=== PATIENT | male | born 1970 | race Caucasian/White ===

== ENCOUNTER → 2016-10-15 | Outpatient (CLI) | payer OTHER ==
[~2016-10-15] MED LIST: CEPH500C PO; HYDR-5688 PO; IBUP1TAB51 PO; INSDGI SC; INSUINJ14 SC; LSN5 PO; PRAV20TA PO; ROSU20TA PO; SULF800T23 PO
[2016-10-15 15:02] LABS: ESTIMATED AVERAGE GLUCOSE 217 mg/dl; HA1C FLAG Normal (Normal)
[2016-10-15 15:21] LABS: ALT/SGPT 33 U/L (12-78); AST/SGOT 25 U/L (15-37); BLOOD UREA NITROGEN 15 mg/dl (7-18); BUN/CREATININE RATIO 14.9 (10-20); CALCIUM 8.8 mg/dl (8.5-10.1); CARBON DIOXIDE 25 mmol/L (21-32); CHLORIDE 104 mmol/L (98-107); GLUCOSE 182 mg/dl (70-99); POTASSIUM 4.1 mmol/L (3.5-5.1); SODIUM 138 mmol/L (136-145)
[2016-10-15 15:32] LABS: ALKALINE PHOSPHATASE 84 U/L (45-117); CHOLESTEROL 281 mg/dl (0-200); CHOLESTEROL/HDL RATIO 6.4; HDL CHOLESTEROL 44 mg/dl; LDL CHOLESTEROL CALCULATED 215 mg/dl; THYROID STIMULATING HORMONE 0.427 uIu/ml (0.300-4.500); TRIGLYCERIDES 108 mg/dl (0-150); VERY LOW DENSITY LIPOPROT CALC 22 mg/dl
[2016-10-15 15:48] LABS: RATIO 286.8 mcg/mg (0-30.0)
== END | disposition home or self-care (01) ==
LOC: C.LAB 12:59
PROVIDERS: ATTEND Nurse Practitioner Family
DX: E78.5 Hyperlipidemia, unspecified (principal); R80.9 Proteinuria, unspecified; E10.29 Type 1 diabetes mellitus with other diabetic kidney complication; E10.65 Type 1 diabetes mellitus with hyperglycemia

== ENCOUNTER 2016-10-20 12:23 | Emergency (ER) | payer OTHER ==
[~2016-10-20] VITALS: Ht 175.3 cm; Wt 82.1 kg
[~2016-10-20 12:23] MED LIST changes: -CEPH500C PO; -ROSU20TA PO; -SULF800T23 PO
[2016-10-20 12:34] VITALS: TEMP 36.9; Ht 175.3 cm; Wt 82.1 kg
[2016-10-20] MEDS ORDERED: ROSU20TA PO (12:52)
--- NOTE | 2016-10-20 13:51 | DIAGNOSTIC IMAGING REPORT ---
LEFT TIBIA/FIBULA 2 VIEWS ROUTINE CLINICAL HISTORY: Left lower leg pain/swelling COMPARISON: None. DISCUSSION: No fractures or dislocations are visualized. No destructive lesions are identified. There are calcifications in the region of the infrapatellar fat pad. Vascular calcifications are visualized in the region of the distal anterior tibial artery. IMPRESSION: 1. No fractures identified 2. No erosive or destructive changes are visualized Electronically signed by: Kip Luu M.D. 10/20/2016 1:50 PM Dictated Date/Time: 10/20/2016 1:48 PM
--- NOTE | 2016-10-20 14:36 | DIAGNOSTIC IMAGING REPORT ---
ULTRASOUND LEFT LOWER EXTREMITY VENOUS CLINICAL HISTORY: Left leg pain and swelling. COMPARISON STUDY: No priors. TECHNIQUE: Real-time, grayscale, and color Doppler sonography of the deep veins of the left lower extremity was performed from the inguinal crease to the calf. Compression and augmentation were utilized. FINDINGS: There is no sonographic evidence of deep venous thrombosis identified in the left lower extremity. The common femoral, superficial femoral, and popliteal veins are patent and normally compressible. The greater saphenous vein and the profunda femoris vein at the junction with the common femoral vein are clear. The visualized calf veins are patent. IMPRESSION: There is no sonographic evidence of deep venous thrombosis identified in the left lower extremity. Electronically signed by: Darrick Duckworth M.D. 10/20/2016 2:34 PM Dictated Date/Time: 10/20/2016 2:34 PM
[2016-10-20] MEDS ORDERED: CEPH500C PO (15:36)
[2016-10-20] MEDS ORDERED: SULF800T23 PO (15:36)
[2016-10-20 15:38] VITALS: BP 135/85; PULSE 71; O2SAT 100
--- NOTE | 2016-10-21 15:11 | EMERGENCY ROOM VISIT NOTE ---
History First contact with patient: 12:54 Chief Complaint: WOUND INFECTION Stated Complaint: LUMP ON LEFT MAIN Nursing Triage Summary: Triage note: pt reports lump to left amin x 1 week. "it gets sore and swollen when i am up and walking around." pt reports concern for blood clots. pt denies any hx of blood clots. pt denies any injury. History of Present Illness The patient is a 46 year old male who presents to the Emergency Room with complaints of pain and swelling over the front of his left lower leg. The patient states that walking worsens his symptoms. He does not recall a distinct injury or trauma. He is a diabetic and has some decreased sensation at baseline. The patient states that the swelling just began over the past 2 days, and he became concerned for a blood clot. The patient does not have chest pain or shortness of breath. No fever or chills. He has not taken anything [id number] for his symptoms which she rates a 5/10. Review of Systems More than 10 systems were reviewed and otherwise negative with the exception of history of present illness. Past Medical/Surgical History Diabetes Family History No pertinent family history Social History Smoking Status: Never Smoker Housing Status: lives with family Current/Historical Medications Scheduled Cephalexin Monohydrate (Keflex), 500 MG PO TID Insulin Aspart Penfill (Novolog Penfill), 1 DOSE SC SLIDING SCALE Insulin Glargine (Lantus), 14 UNITS SC HS Lisinopril (Lisinopril), 5 MG PO HS Rosuvastatin Calcium (Crestor), 20 MG PO DAILY Sulfamethoxazole-Trimethoprim (Bactrim Ds 800MG/160MG), 1 TAB PO BID Allergies Coded Allergies: No Known Allergies (Unverified , 10/20/16) Physical Exam Vital Signs Date Time Temp Pulse Resp B/P Pulse Ox O2 Delivery O2 Flow Rate FiO2 10/20/16 15:38 71 16 135/85 100 10/20/16 14:36 73 18 127/81 99 Room Air 10/20/16 12:34 36.9 94 18 138/91 98 Room Air Pain Rating (0-10): 2.0 Physical Exam VITALS: Vitals are noted on the nurse's note and reviewed by myself. Vital signs stable. GENERAL: Well-developed, well-nourished, white male, who is in no acute distress and resting comfortably. Patient is cooperative with the examination. HEAD: Normocephalic atraumatic. HEART: Regular rate and rhythm without murmurs gallops or rubs. LUNGS: Clear to auscultation bilaterally without wheezes, rales or rhonchi. No retractions or accessory muscle use. MUSCULOSKELETAL: There is some patchy erythema over the anterior and medial left lower extremity. There is no obvious palpable cord. Negative Homans sign. Neurovascular status is essentially intact to the distal extremity. No distinct abscess noted. NEURO: Patient was alert and oriented to person place and time. Medical Decision & Procedures ER Provider Diagnostic Interpretation: ULTRASOUND LEFT LOWER EXTREMITY VENOUS CLINICAL HISTORY: Left leg pain and swelling. COMPARISON STUDY: No priors. TECHNIQUE: Real-time, grayscale, and color Doppler sonography of the deep veins of the left lower extremity was performed from the inguinal crease to the calf. Compression and augmentation were utilized. FINDINGS: There is no sonographic evidence of deep venous thrombosis identified in the left lower extremity. The common femoral, superficial femoral, and popliteal veins are patent and normally compressible. The greater saphenous vein and the profunda femoris vein at the junction with the common femoral vein are clear. The visualized calf veins are patent. IMPRESSION: There is no sonographic evidence of deep venous thrombosis identified in the left lower extremity. LEFT TIBIA/FIBULA 2 VIEWS ROUTINE CLINICAL HISTORY: Left lower leg pain/swelling COMPARISON: None. DISCUSSION: No fractures or dislocations are visualized. No destructive lesions are identified. There are calcifications in the region of the infrapatellar fat pad. Vascular calcifications are visualized in the region of the distal anterior tibial artery. IMPRESSION: 1. No fractures identified 2. No erosive or destructive changes are visualized ED Course Physical exam and history were performed. Nursing notes and EMR were reviewed. Patient appears to have pain and swelling over the left lower leg. He does not have injury or trauma that he recalls. X-ray and ultrasound were performed. The x-ray does not show evidence of acute fracture. The ultrasound is without signs of a DVT. I discussed the findings with the patient, who overall appears stable for discharge home. Because he is a diabetic and does have some erythema here, I do have concern for an early cellulitis. I will start the patient on Bactrim and Keflex. Recommended that he have a repeat check of his symptoms in the next 2-3 days either in the ER or with his PCP. He is certainly invited back to the ER if his symptoms worsen. The patient was pleased with this plan of voiced understanding. He rated his discomfort a 2/10 at the time of departure. The chart was completed utilizing [employer] Voice Recognition Software. Grammatical errors, random word insertions, pronoun errors, and incomplete sentences are an occasional consequence of this system due to software limitations, ambient noise, and hardware issues. Any formal questions or concerns about the content, text, or information contained within the body of this dictation should be directly addressed to the provider for clarification. . Medical Decision Differential diagnosis: Etiologies such as cellulitis, abscess, MRSA infection, DVT, necrotizing fasciitis, dermatitis, drug eruption, as well as others were entertained.. Impression Primary Impression: Cellulitis of left leg Departure Information Dispostion Home / Self-Care Condition GOOD Prescriptions Cephalexin Monohydrate (Keflex) 500 Mg Cap 500 MG PO TID for 10 Days, #30 CAP Prov: Juno Aguayo PA-C 10/20/16 Sulfamethoxazole-Trimethoprim (Bactrim Ds 800MG/160MG) 1 Tab Tab 1 TAB PO BID for 10 Days, #20 TAB Prov: Juno Aguayo PA-C 10/20/16 Forms HOME CARE DOCUMENTATION FORM, IMPORTANT VISIT INFORMATION Patient Instructions A Signature Page, [facility] Additional Instructions You were seen and evaluated today on an emergency basis only. This is not a substitute for, or an effort to provide, complete comprehensive medical care. It is not possible to recognize and treat all injuries or illnesses in a single emergency department visit. For this reason it is recommended that you followup with your primary care physician or back in the emergency room in 48-72 hours for recheck. Trimethoprim-Sulfamethoxazole(Bactrim DS): Take one pill twice daily for 10 days for your skin infection. All antibiotics can cause diarrhea. If this occurs and you feel worse or it does not resolve in 1-2 days follow up with your doctor or return to the Emergency Department as this could be signs of serious underlying problems. Any medication can cause an allergic reaction, stop the pills immediately and return to the ER for rash, hives, breathing difficulties, or swelling. Cephalexin(Keflex) 500mg: Take one pill 3 times daily for 10 days for your skin infection. All antibiotics can cause diarrhea. If this occurs and you feel worse or it does not resolve in 1-2 days follow up with your doctor or return to the Emergency Department as this could be signs of serious underlying problems. Any medication can cause an allergic reaction, stop the pills immediately and return to the ER for rash, hives, breathing difficulties, or swelling. You are welcome to return to the emergency department anytime with new, worsening, or concerning symptoms.
== END 2016-10-20 15:50 | disposition home or self-care (01) ==
LOC: C.EDB 12:24 → C.EDD 15:50
DX: L03.116 Cellulitis of left lower limb (principal); E11.9 Type 2 diabetes mellitus without complications; Z79.4 Long term (current) use of insulin

== ENCOUNTER → 2017-01-18 | Outpatient (CLI) | payer BC, OTHER ==
[~2017-01-18] MED LIST changes: -HYDR-5688 PO; -IBUP1TAB51 PO; -PRAV20TA PO; +ROSU20TA PO
[2017-01-18 12:45] LABS: CHOLESTEROL/HDL RATIO 5.8
[2017-01-18 13:13] LABS: RATIO 192.2 mcg/mg (0-30.0)
[2017-01-18 13:57] LABS: ESTIMATED AVERAGE GLUCOSE 197 mg/dl; HA1C FLAG Normal (Normal)
== END | disposition home or self-care (01) ==
LOC: C.LAB 11:10
PROVIDERS: ATTEND Nurse Practitioner Family
DX: E10.29 Type 1 diabetes mellitus with other diabetic kidney complication (principal)

== ENCOUNTER → 2017-04-25 | Outpatient (CLI) | payer BC, OTHER ==
[2017-04-25 13:24] LABS: ESTIMATED AVERAGE GLUCOSE 192 mg/dl; HA1C FLAG Normal (Normal)
== END | disposition home or self-care (01) ==
LOC: C.LABPBG 10:51
PROVIDERS: ATTEND Nurse Practitioner Family
DX: E10.29 Type 1 diabetes mellitus with other diabetic kidney complication (principal)

== ENCOUNTER → 2017-09-07 | Outpatient (CLI) | payer BC, OTHER ==
[2017-09-07 13:44] LABS: ESTIMATED AVERAGE GLUCOSE 192 mg/dl; HA1C FLAG Normal (Normal)
== END | disposition home or self-care (01) ==
LOC: C.LABPBG 11:18
PROVIDERS: ATTEND Nurse Practitioner Family
DX: E10.29 Type 1 diabetes mellitus with other diabetic kidney complication (principal)

== ENCOUNTER → 2017-12-14 | Outpatient (CLI) | payer BC, OTHER ==
[2017-12-14 13:03] LABS: HEMOGLOBIN A1C 9.2 % (4.5-5.6)
[2017-12-14 14:19] LABS: BLOOD UREA NITROGEN 19 mg/dl (7-18); CALCIUM 9.5 mg/dl (8.5-10.1); CARBON DIOXIDE 28 mmol/L (21-32); CHOLESTEROL 143 mg/dl (0-200); CREATININE 0.91 mg/dl (0.60-1.40); GLUCOSE 46 mg/dl (70-99); LDL CHOLESTEROL CALCULATED 89 mg/dl; POTASSIUM 3.6 mmol/L (3.5-5.1); SODIUM 140 mmol/L (136-145)
== END | disposition home or self-care (01) ==
LOC: C.LABPBG 10:01
PROVIDERS: ATTEND Nurse Practitioner Family
DX: E10.29 Type 1 diabetes mellitus with other diabetic kidney complication (principal)

== ENCOUNTER 2023-05-18 17:10 | Inpatient (IN) ==
--- NOTE | 2023-05-18 17:16 | ED Triage Note ---
Date of Service May 18, 2023 History of Present Illness This patient was briefly evaluated while in triage. An abbreviated physical exam was performed. This patient is a 52-year-old Male who presents to the ED for evaluation of memory loss, aphasia, facial droop. Symptoms started around 1130a and lasted 2 hours. They have since resolved. Denies any symptoms at this time. AAOx3. Physical Exam Constitutional: alert and oriented x3. no acute distress. HEENT: normocephalic, atraumatic. normal conjunctiva.PERRLA. EOM's grossly intact. Respiratory: lungs are clear to auscultation without wheezes, rhonchi, or rales bilaterally. equal chest rise. normal respiratory effort, no accessory muscle use. Cardiovascular: normal heart sounds without murmur. regular rate and rhythm. MSK: moves all 4 extremities spontaneously Neuro: no focal deficits Psych:appropriate mood and affect. Initial orders for labs and / or imaging were placed and patient was placed in the waiting area until a bed is available. Please see further documentation for the full ED course.
[2023-05-18 18:08] LABS: Basophils # (auto) 0.03 K/uL (0-0.2); Basophils % (auto) 0.4 %; Eosinophils % (auto) 3.6 %; Hematocrit (blood only) 40.9 % (42.0-52.0); Hemoglobin 14.5 g/dl (14.0-18.0); Immature Granulocytes # (auto) 0.03 K/uL (0.01-0.20); Immature Granulocytes % (auto) 0.4 %; Lymphocytes # (auto) 2.55 K/uL (1.2-3.4); Lymphocytes % (auto) 30.6 %; Mean Corpuscular Hemoglobin 30.8 pg (25.0-34.0); Mean Corpuscular Hgb Conc 35.5 g/dL (32.0-36.0); Mean Corpuscular Volume 86.8 fL (80.0-100.0); Mean Platelet Volume 10.6 fL (9.4-12.4); Monocytes # (auto) 0.83 K/uL (0.11-0.59); Neutrophils # (auto) 4.59 K/uL (1.40-6.50); Platelet Count 232 K/uL (130-400); RDW Coefficient of Variation 12.2 % (11.5-14.5); RDW Standard Deviation 39.1 fL (36.4-46.3); Red Blood Count 4.71 M/uL (4.70-6.10); White Blood Count 8.33 K/ul (4.8-10.8)
[2023-05-18 18:25] LABS: Albumin Globulin Ratio 1.5 (0.9-2); Albumin Level 4.1 gm/dl (3.4-5.0); BUN Creatinine Ratio 13.3 (10-20); Bilirubin,Total 0.6 mg/dl (0.2-1.0); Calcium 9.2 mg/dl (8.6-10.3); Creatinine Clr Calc Pharmacy 99.4 ml/min; Est GFR (Non-African American) 88.9 ml/min; Globulin 2.8 gm/dl (2.5-4.0); Potassium 3.7 mmol/L (3.5-5.1); Total Protein 6.9 gm/dl (6.0-8.3)
[2023-05-18 18:31] LABS: Troponin I High Sensitivity 6.4 pg/ml (0-20)
[2023-05-18 18:43] LABS: INR 0.9 (0.9-1.1); Partial Thromboplastin Ratio 0.9
--- NOTE | 2023-05-18 18:46 | CT Scan Report ---
CT SCAN OF THE BRAIN WITHOUT IV CONTRAST CLINICAL HISTORY: Aphasia. Memory loss COMPARISON STUDY: No priors. TECHNIQUE: Unenhanced axial CT scan of the brain is performed from the vertex to the skull base. A do se lowering technique was utilized adhering to the principles of ALARA. CT DOSE: 547.75 mGy.cm FINDINGS: Brain parenchyma: There is age-related involutional change noting mild subcortical and periventricula r microangiopathic disease. There is no hemorrhage, mass effect, or evidence of acute territorial isc hemia by CT criteria. 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 Diana-white matte r differentiation is preserved. No extra-axial fluid collection is seen. Ventricles, sulci, cisterns: Prominent secondary to involutional change. Intracranial vasculature: There is atherosclerotic calcification of the cavernous carotid and vertebr al arteries. Calvarium: Unremarkable. Sinuses and mastoids: There is mild mucosal thickening within the right maxillary antrum comment a le ft frontal sinus, and the ethmoid sinuses. Moderate mucosal thickening is seen within the right front al sinus. The mastoid air cells are well pneumatized. Orbits: The bony orbits are grossly intact. IMPRESSION: There is no hemorrhage, mass effect, or evidence of acute territorial ischemia by CT anya jensen. ACT 112: Negative or not required by law. Electronically signed by: Darrick Duckworth M.D. 05/18/2023 6:44 PM
[2023-05-18] MEDS ORDERED: ACETAMINOPHEN 1,000 MG/100 ML VIAL IV STA (19:26)
[2023-05-18] MEDS ORDERED: SODIUM CHLORIDE 0.9% 1000ML 1,000 ML IV SCH (19:30)
--- NOTE | 2023-05-18 19:34 | XRay Report ---
SINGLE VIEW CHEST CLINICAL HISTORY: Atypical chest pain. FINDINGS: 2 AP, portable, upright chest radiographs are compared to study dated 01/02/2023. The cardio mediastinal silhouette is unremarkable. There is mild bibasilar atelectasis. The lungs and pleural sp aces are otherwise clear. No pneumothorax is seen. The bony thorax is grossly intact. IMPRESSION: No acute cardiopulmonary abnormality. ACT 112: Negative or not required by law. Electronically signed by: Darrick Duckworth M.D. 05/18/2023 7:33 PM
--- NOTE | 2023-05-18 20:03 | CT Scan Report ---
Exam(s): CTA HEAD With Contrast IV Amt: 115 ml optiray 350 EXAM: CT Angiography Head With Intravenous Contrast CLINICAL HISTORY: Reason for exam: stroke symptoms. TECHNIQUE: Axial computed tomographic angiography images of the head with intravenous contrast. CTDI is 40 mGy and DLP is 554.01 mGy-cm. Automated exposure control was utilized for the study. A dose lowering technique was utilized adhering to the principles of ALARA. MIP reconstructed images were created and reviewed. CONTRAST: Patient received 115 ml optiray 350 of IV contrast COMPARISON: No relevant prior studies available. FINDINGS: Right internal carotid artery: No acute findings. Intracranial segment is patent with no significant stenosis. No aneurysm. Right anterior cerebral artery: Unremarkable. No occlusion or significant stenosis. No aneurysm. Right middle cerebral artery: Unremarkable. No occlusion or significant stenosis. No aneurysm. Right posterior cerebral artery: Unremarkable. No occlusion or significant stenosis. No aneurysm. Right vertebral artery: Unremarkable as visualized. Left internal carotid artery: No acute findings. Intracranial segment is patent with no significant stenosis. No aneurysm. Left anterior cerebral artery: Unremarkable. No occlusion or significant stenosis. No aneurysm. Left middle cerebral artery: Unremarkable. No occlusion or significant stenosis. No aneurysm. Left posterior cerebral artery: Unremarkable. No occlusion or significant stenosis. No aneurysm. Left vertebral artery: Unremarkable as visualized. Basilar artery: Unremarkable. No occlusion or significant stenosis. No aneurysm. IMPRESSION: Normal head CTA. Electronically signed by: Stevie Sen MD 05/18/23 20:02 PM
--- NOTE | 2023-05-18 20:04 | CT Scan Report ---
Exam(s): CTA NECK With Contrast IV Amt: 115 ml optiray 350 EXAM: CT Angiography Neck With Intravenous Contrast CLINICAL HISTORY: Reason for exam: stroke symptoms. TECHNIQUE: Routine carotid CT angiography protocol was performed with intravenous contrast. NASCET criteria using the distal ICAs for comparison were used for evaluation of stenoses. CTDI is 40 mGy and DLP is 554.01 mGy-cm. Automated exposure control was utilized for the study. A dose lowering technique was utilized adhering to the principles of ALARA. MIP reconstructed images were created and reviewed. CONTRAST: Patient received 115 ml optiray 350 of IV contrast COMPARISON: None. FINDINGS: VASCULATURE: Right common carotid artery: Unremarkable. No occlusion or significant stenosis. No dissection. Right internal carotid artery: Unremarkable. Extracranial segment is patent with no occlusion or significant stenosis. No dissection. Right external carotid artery: Unremarkable. No occlusion. Right vertebral artery: Unremarkable. No occlusion or significant stenosis. No dissection. Left common carotid artery: Unremarkable. No occlusion or significant stenosis. No dissection. Left internal carotid artery: Unremarkable. Extracranial segment is patent with no occlusion or significant stenosis. No dissection. Left external carotid artery: Unremarkable. No occlusion. Left vertebral artery: Unremarkable. No occlusion or significant stenosis. No dissection. NECK: Bones/joints: Unremarkable. Soft tissues: Unremarkable. Lung apices: Clear. CAROTID STENOSIS REFERENCE USING NASCET CRITERIA: % ICA stenosis = (1 - narrowest ICA diameter/diameter of distal cervical ICA) x 100. Mild - <50% stenosis. Moderate - 50-69% stenosis. Severe - 70-94% stenosis. Near occlusion - 95-99% stenosis. Occluded - 100% stenosis. IMPRESSION: Negative CTA neck. Electronically signed by: Stevie Sen MD 05/18/23 20:03 PM
--- NOTE | 2023-05-18 20:49 | Emergency Department Note ---
Impression & Plan Stroke-like symptoms, Headache ED Provider Note ED Provider Note NAME: MALIKA GALLARDO AGE:52 SEX: Male : 1970 ARRIVES VIA: Private vehicle INFORMANT: Patient ED PROVIDER(s): Neeta Hoyos DO CHIEF COMPLAINT: Strokelike symptoms HPI: This is a 52-year-old male presents emerged from with significant other at bedside due to concern for possible stroke. Patient states after dropping his truck off at the mechanics today he began to have difficulty remembering things including how to use his phone or how to call his significant other. The significant other bedside shows and reads texts from throughout the afternoon that were abnormal for him. She also has a He was have a check he tried to write and could not remember how to properly write a check and states the aircraft rigging and controls mechanic had to do it for him. Patient states he had a significant headache throughout the day which is unusual for him as well. He denies any trauma or falls, denies any recent illness or fevers. Patient denies any prior similar events. He states he did have some slight tingling in his hands bilaterally but no other paresthesias. He denied any weakness. The significant other states he showed up to her place of work and had mumbled and slurred speech, appeared pale, and could not walk with a steady gait. PAST MEDICAL HISTORY:See Below PAST SURGICAL HISTORY:See Below FAMILY HISTORY:See Below SOCIAL HISTORY:See Below HOME MEDICATIONS:See Below ALLERGIES:See Below VITALS:See Below PHYSICAL EXAMINATION: GENERAL: alert, well appearing, well nourished, no distress, non-toxic EYE EXAM: normal conjunctiva, PERRL and EOM's grossly intact OROPHARYNX: no exudate, no erythema, lips, buccal mucosa, and tongue normal and mucous membranes are moist NECK: supple, no nuchal rigidity, no adenopathy, non-tender LUNGS: Clear to auscultation. Normal chest wall mechanics, no w/r/r HEART: no murmurs, S1 normal and S2 normal ABDOMEN: abdomen soft, non-tender, normo-active bowel sounds, no masses, no rebound or guarding. BACK: Back is symmetrical on inspection and there is no deformity, no midline tenderness, no CVA tenderness. SKIN: no rashes, petechiae, orbruising UPPER EXTREMITIES: upper extremities are grossly normal. FROM, nml pulses b/l. LOWER EXTREMITIES: No pitting edema. FROM, nml pulses b/l. NEURO EXAM: Normal sensorium, cranial nerves II-XII grossly intact, normal speech but occasionally mumbles thru a word, no facial droop,nogross weakness of arms, no gross weakness of legs. Gross sensation intact. No ataxia. Vital Signs: reviewed and remarkable Differential Diagnosis: TIA, CVA, ICH, complex migraine, seizure, electrolyte abnormality, JEREMIAH, anxiety, as well as others were considered MEDICAL DECISION MAKING: This is a 52-year-old male presents emergency room due to concern for memory loss, dysarthria, difficulty walking, and headache that began earlier today. No prior episodes. Patient afebrile and vital signs stable. Labs drawn and sent, IV established, EKG and chest ray performed at bedside and interpreted by me, patient monitored on telemetry. Patient sent for CT/CTA which were reassuring. Patient with multiple risk factors for TIA/CVA. All patient's symptoms were improved by the time of my evaluation here, significant other at bedside states he was still not fully recovered or returned to normal. Due to concern and risk factors, case discussed with hospitalist for additional evaluation and management. Consultation(s): 2022: Discussed with Dr. Coyne, [facility] hospitalist service. ER Treatment Provided: See below Diagnostics Interpreted By Me: -ECG: Normal sinus at 64, normal axis, normal intervals, no acute ST/T wave changes -Cardiac Monitoring: An order was placed for continuous cardiac monitoring. The monitor shows a rate of 70 with normal sinus rhythm. -Laboratory studies: As stated above and show below. -Imaging studies: X-ray Chest: A single view study of the chest was reviewed and was negative for cardiomegaly, focal infiltrate, effusion, pulmonary edema, or wide mediastinum. 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 Dyslipidemia Erectile dysfunction Flexor tendon rupture of hand Hepatic steatosis HTN (hypertension) Shoulder pain Spinal stenosis Surgical History History of esophagogastroduodenoscopy (EGD) History of tooth extraction S/P carpal tunnel release Family History Mother Dyslipidemia Hypertension Thyroid disease Grandmother (Maternal) Coronary heart disease Brother Colorectal cancer Other No family history of adverse response to anesthesia Denies family history of Ovarian cancer Prostate cancer Breast cancer Lung cancer Social History Smoking Status: Former smoker Tobacco Type: Cigarettes Age Quit Using Tobacco: 40; packs per day: 0.5; Second Hand Exposure: No; Do You Dip or Chew Tobacco: Yes; Hx Alcohol Use: Yes Alcohol type: beer Alcohol type Comment: social Alcohol Intake Frequency: Monthly or Less Hx Substance Use: No Preferred Language: Japanese Communication Ability: Effective Visual Impairment: No Limitations Hearing Ability: Normal Full Time Required: No Beliefs That Will Affect Care: None marital status: Single Current Living Situation: Significant Other current occupational status: employed 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 Feels Safe at Home: Yes Childhood Exposure to Second-Hand Smoke: Yes Diet: regular Diet Comment: regular caffeine: Yes (coffee) during the past year weight has: remained stable Dental Care, Regularly: No Physical Activity Frequency: Does not Exercise Seatbelt Use: sometimes Sunscreen Use: No Assistive Devices: None Allergies Allergies Allergy/AdvReac Type Severity Reaction Status Date / Time No Known Allergies Allergy Verified 02/14/23 11:49 Home Meds Home Medications Medication Instructions Recorded Confirmed cholecalciferol (vitamin D3) 25 25 mcg PO DAILY 01/02/23 05/18/23 mcg (1,000 unit) capsule (Vitamin D3) insulin aspart U-100 100 unit/mL 10 - 15 unit subcut TIDM 01/02/23 05/18/23 (3 mL) subcutaneous pen (Novolog FlexPen U-100 Insulin aspart) empagliflozin 10 mg tablet mg 05/19/23 (Jardiance) insulin glargine 100 unit/mL (3 40 unit subcut QAM 05/19/23 05/19/23 mL) subcutaneous pen (Basaglar KwikPen U-100 Insulin) Previous Rx's Medication Instructions Recorded Accu-Chek Fastclix Lancet Drum #400 ea 01/08/21 (lancets) pen needle, diabetic 32 gauge x #400 ea 03/01/22 5/32" (BD Ultra-Fine Alisia Pen Needle) aspirin 81 mg tablet,delayed 81 mg PO DAILY #90 tabs 08/30/22 release Accu-Chek Guide test strips (blood #400 ea 02/14/23 sugar diagnostic) escitalopram oxalate 10 mg tablet 10 mg PO QAM #90 tabs 02/25/23 blood-glucose sensor (FreeStyle #2 ea 04/04/23 Gaby 3 Sensor device) rosuvastatin 40 mg tablet 40 mg PO DAILY #90 tabs 04/25/23 lisinopril 20 mg tablet 20 mg PO HS #90 tabs 05/11/23 ezetimibe 10 mg tablet 10 mg PO DAILY #90 tabs 05/18/23 clopidogrel 75 mg tablet 75 mg PO QAM 30 days #30 tabs 05/19/23 Results & Data (ED) Vital Signs Vital Signs - 24 hr 05/18/23 17:14 05/18/23 18:55 05/18/23 18:55 Temperature 36.4 C L Temperature Source Temporal Artery Scan Pulse Rate 82 63 61 Respiratory Rate 20 18 Blood Pressure 116/70 Blood Pressure Mean 85 Pulse Oximetry 95 Oxygen Delivery Method Room Air Sepsis Recent Fever Within 48 Hours No Sepsis New/Unexplained Change in Mental Status N/A Sepsis Action Taken by Nursing No Action Required 05/18/23 19:00 05/18/23 19:00 05/18/23 19:10 Temperature Temperature Source Pulse Rate 58 L 63 Respiratory Rate 22 23 Blood Pressure 121/79 Blood Pressure Mean 93 Pulse Oximetry Oxygen Delivery Method Sepsis Recent Fever Within 48 Hours Sepsis New/Unexplained Change in Mental Status Sepsis Action Taken by Nursing 05/18/23 19:20 05/18/23 19:30 05/18/23 19:30 Temperature Temperature Source Pulse Rate 64 68 Respiratory Rate 21 23 Blood Pressure 146/95 H Blood Pressure Mean 112 Pulse Oximetry Oxygen Delivery Method Sepsis Recent Fever Within 48 Hours Sepsis New/Unexplained Change in Mental Status Sepsis Action Taken by Nursing Laboratory Data 05/18/23 17:25 05/18/23 17:25 Lab Results 05/18/23 05/18/23 05/18/23 Range/Units 17:25 17:25 17:25 WBC 8.33 (4.8-10.8) K/ul RBC 4.71 (4.70-6.10) M/uL Hgb 14.5 (14.0-18.0) g/dl Hct 40.9 L (42.0-52.0) % MCV 86.8 (80.0-100.0) fL MCH 30.8 (25.0-34.0) pg MCHC 35.5 (32.0-36.0) g/dL RDW Std Deviation 39.1 (36.4-46.3) fL RDW Coeff of Bernard 12.2 (11.5-14.5) % Plt Count 232 (130-400) K/uL MPV 10.6 (9.4-12.4) fL Immature Gran % (Auto) 0.4 % Neut % (Auto) 55.0 % Lymph % (Auto) 30.6 % [place] % (Auto) 10.0 % Eos % (Auto) 3.6 % Baso % (Auto) 0.4 % Neut # (Auto) 4.59 (1.40-6.50) K/uL Lymph # (Auto) 2.55 (1.2-3.4) K/uL [place] # (Auto) 0.83 H (0.11-0.59) K/uL Eos # (Auto) 0.30 (0-0.50) K/uL Baso # (Auto) 0.03 (0-0.2) K/uL Immature Gran # (Auto) 0.03 (0.01-0.20) K/uL PT 10.0 (9.0-12.0) Seconds INR 0.9 (0.9-1.1) APTT 24.0 (21.0-31.0) Seconds PTT Ratio 0.9 Sodium 134 L (136-145) mmol/L Potassium 3.7 (3.5-5.1) mmol/L Chloride 103 (98-107) mmol/L Carbon Dioxide 23 (21-32) mmol/L Anion Gap 8 (3-11) BUN 13 (6-23) mg/dl Creatinine 0.98 (0.6-1.4) mg/dl Est Cr Clr Drug Dosing 99.4 ml/min Est GFR ( Amer) 103.0 ml/min Est GFR (Non-Af Amer) 88.9 ml/min BUN/Creatinine Ratio 13.3 (10-20) Glucose 194 H (70-99(Fasting)) mg/dl POC Glucose (70-99) mg/dl Calcium 9.2 (8.6-10.3) mg/dl Total Bilirubin 0.6 (0.2-1.0) mg/dl AST 17 (13-39) U/L ALT 24 (7-52) U/L Alkaline Phosphatase 74 (34-104) U/L Troponin I High Sens 6.4 (0-20) pg/ml Total Protein 6.9 (6.0-8.3) gm/dl Albumin 4.1 (3.4-5.0) gm/dl Globulin 2.8 (2.5-4.0) gm/dl Albumin/Globulin Ratio 1.5 (0.9-2) 05/18/23 Range/Units 18:49 WBC (4.8-10.8) K/ul RBC (4.70-6.10) M/uL Hgb (14.0-18.0) g/dl Hct (42.0-52.0) % MCV (80.0-100.0) fL MCH (25.0-34.0) pg MCHC (32.0-36.0) g/dL RDW Std Deviation (36.4-46.3) fL RDW Coeff of Bernard (11.5-14.5) % Plt Count (130-400) K/uL MPV (9.4-12.4) fL Immature Gran % (Auto) % Neut % (Auto) % Lymph % (Auto) % [place] % (Auto) % Eos % (Auto) % Baso % (Auto) % Neut # (Auto) (1.40-6.50) K/uL Lymph # (Auto) (1.2-3.4) K/uL [place] # (Auto) (0.11-0.59) K/uL Eos # (Auto) (0-0.50) K/uL Baso # (Auto) (0-0.2) K/uL Immature Gran # (Auto) (0.01-0.20) K/uL PT (9.0-12.0) Seconds INR (0.9-1.1) APTT (21.0-31.0) Seconds PTT Ratio Sodium (136-145) mmol/L Potassium (3.5-5.1) mmol/L Chloride (98-107) mmol/L Carbon Dioxide (21-32) mmol/L Anion Gap (3-11) BUN (6-23) mg/dl Creatinine (0.6-1.4) mg/dl Est Cr Clr Drug Dosing ml/min Est GFR ( Amer) ml/min Est GFR (Non-Af Amer) ml/min BUN/Creatinine Ratio (10-20) Glucose (70-99(Fasting)) mg/dl POC Glucose 128 H (70-99) mg/dl Calcium (8.6-10.3) mg/dl Total Bilirubin (0.2-1.0) mg/dl AST (13-39) U/L ALT (7-52) U/L Alkaline Phosphatase (34-104) U/L Troponin I High Sens (0-20) pg/ml Total Protein (6.0-8.3) gm/dl Albumin (3.4-5.0) gm/dl Globulin (2.5-4.0) gm/dl Albumin/Globulin Ratio (0.9-2) Administered Medications Discontinued Medications Aspirin (Aspirin 81 Mg Ectab) 81 mg PO DAILY [facility] Stop: 06/18/23 08:59 Last Admin: 05/19/23 07:43 Dose: 81 mg Documented By: SARAH Clopidogrel Bisulfate (Clopidogrel Bisulfate 75 Mg Tab) [facility] Stop: 06/18/23 08:59 Last Admin: 05/19/23 07:44 Dose: 75 mg Documented By: SARAH Ezetimibe (Ezetimibe 10 Mg Tablet) 10 mg PO DAILY KENZIE Stop: 06/18/23 08:59 Last Admin: 05/19/23 07:44 Dose: 10 mg Documented By: SARAH Escitalopram Oxalate (Escitalopram Oxalate 10 Mg Tab) 10 mg PO QAM [facility] Stop: 06/18/23 08:59 Last Admin: 05/19/23 07:44 Dose: 10 mg Documented By: SARAH Gadobutrol (Gadobutrol 65ml Vial) 9 ml IV ONCE ONE Stop: 05/19/23 01:53 Last Admin: 05/19/23 01:53 Dose: 9 ml Documented By: SMITH Sodium Chloride (Nss 1000ml) 1,000 mls @ 125 mls/hr IV .Q8H KENZIE Stop: 06/17/23 19:29 Last Infusion: 05/19/23 01:07 Dose: 0 mls/hr Documented By: Admin: 05/18/23 19:47 Dose: 125 mls/hr Documented By: HARSHAD Acetaminophen (Ofirmev) 1,000 mg in 100 mls @ 400 mls/hr IV NOW STA Stop: 05/18/23 19:40 Last Infusion: 05/18/23 20:11 Dose: 0 mls/hr Documented By: Admin: 05/18/23 19:47 Dose: 400 mls/hr Documented By: HARSHAD Sodium Chloride (Nss 1000ml) 1,000 mls @ 100 mls/hr IV .Q10H KENZIE Stop: 06/18/23 00:24 Last Infusion: 05/19/23 10:31 Dose: 0 mls/hr Documented By: Admin: 05/19/23 01:07 Dose: 100 mls/hr Documented By: ALEXA Insulin Aspart (Insulin Aspart Per Unit Charge) 0 units SC ACHS KENZIE Stop: 06/18/23 07:29 Last Admin: 05/19/23 12:25 Dose: 6 units Documented By: SARAH Co-signed By: JAMI Admin: 05/19/23 08:24 Dose: 3 units Documented By: SARAH Co-signed By: JAMI Insulin Glargine (Lantus Per Unit Charge) 18 units SQ BID KENZIE Stop: 06/18/23 08:59 Last Admin: 05/19/23 08:24 Dose: 18 units Documented By: SARAH Co-signed By: JAMI Insulin Glargine (Lantus Per Unit Charge) 18 units SQ NOW ONE Stop: 05/19/23 10:16 Last Admin: 05/19/23 10:35 Dose: 18 units Documented By: SARAH Co-signed By: JAMI Rosuvastatin Calcium (Rosuvastatin Calcium 20 Mg Tab) 40 mg PO DAILY KENZIE Stop: 06/18/23 08:59 Last Admin: 05/19/23 07:44 Dose: 40 mg Documented By: SARAH Imaging Data Radiologist's Impression: Chest X-Ray 05/18/23 17:21 SINGLE VIEW CHEST CLINICAL HISTORY: Atypical chest pain. FINDINGS: 2 AP, portable, upright chest radiographs are compared to study dated 01/02/2023. The cardiomediastinal silhouette is unremarkable. There is mild bibasilar atelectasis. The lungs and pleural spaces are otherwise clear. No pneumothorax is seen. The bony thorax is grossly intact. IMPRESSION: No acute cardiopulmonary abnormality. ACT 112: Negative or not required by law. Electronically signed by: Darrick Duckworth M.D. 05/18/2023 7:[address] 05/18/23 17:21 CT SCAN OF THE BRAIN WITHOUT IV CONTRAST CLINICAL HISTORY: Aphasia. Memory loss COMPARISON STUDY: No priors. TECHNIQUE: Unenhanced axial CT scan of the brain is performed from the vertex to the skull base. A dose lowering technique was utilized adhering to the principles of ALARA. CT DOSE: 547.75 mGy.cm FINDINGS: Brain parenchyma: There is age-related involutional change noting mild subcortical and periventricular microangiopathic disease. There is no hemorrhage, mass effect, or evidence of acute territorial ischemia by CT criteria. 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 Diana- white matter differentiation is preserved. No extra-axial fluid collection is seen. Ventricles, sulci, cisterns: Prominent secondary to involutional change. Intracranial vasculature: There is atherosclerotic calcification of the cavernous carotid and vertebral arteries. Calvarium: Unremarkable. Sinuses and mastoids: There is mild mucosal thickening within the right maxillary antrum comment a left frontal sinus, and the ethmoid sinuses. Moderate mucosal thickening is seen within the right frontal sinus. The mastoid air cells are well pneumatized. Orbits: The bony orbits are grossly intact. IMPRESSION: There is no hemorrhage, mass effect, or evidence of acute territorial ischemia by CT criteria. ACT 112: Negative or not required by law. Electronically signed by: Darrick Duckworth M.D. 05/18/2023 6:44 PM Head CTA 05/18/23 19:26 Exam(s): CTA HEAD With Contrast IV Amt: 115 ml optiray 350 EXAM: CT Angiography Head With Intravenous Contrast CLINICAL HISTORY: Reason for exam: stroke symptoms. TECHNIQUE: Axial computed tomographic angiography images of the head with intravenous contrast. CTDI is 40 mGy and DLP is 554.01 mGy-cm. Automated exposure control was utilized for the study. A dose lowering technique was utilized adhering to the principles of ALARA. MIP reconstructed images were created and reviewed. CONTRAST: Patient received 115 ml optiray 350 of IV contrast COMPARISON: No relevant prior studies available. FINDINGS: Right internal carotid artery: No acute findings. Intracranial segment is patent with no significant stenosis. No aneurysm. Right anterior cerebral artery: Unremarkable. No occlusion or significant stenosis. No aneurysm. Right middle cerebral artery: Unremarkable. No occlusion or significant stenosis. No aneurysm. Right posterior cerebral artery: Unremarkable. No occlusion or significant stenosis. No aneurysm. Right vertebral artery: Unremarkable as visualized. Left internal carotid artery: No acute findings. Intracranial segment is patent with no significant stenosis. No aneurysm. Left anterior cerebral artery: Unremarkable. No occlusion or significant stenosis. No aneurysm. Left middle cerebral artery: Unremarkable. No occlusion or significant stenosis. No aneurysm. Left posterior cerebral artery: Unremarkable. No occlusion or significant stenosis. No aneurysm. Left vertebral artery: Unremarkable as visualized. Basilar artery: Unremarkable. No occlusion or significant stenosis. No aneurysm. IMPRESSION: Normal head CTA. Electronically signed by: Stevie Sen MD 05/18/23 20:02 PM Neck CTA 05/18/23 19:26 Exam(s): CTA NECK With Contrast IV Amt: 115 ml optiray 350 EXAM: CT Angiography Neck With Intravenous Contrast CLINICAL HISTORY: Reason for exam: stroke symptoms. TECHNIQUE: Routine carotid CT angiography protocol was performed with intravenous contrast. NASCET criteria using the distal ICAs for comparison were used for evaluation of stenoses. CTDI is 40 mGy and DLP is 554.01 mGy-cm. Automated exposure control was utilized for the study. A dose lowering technique was utilized adhering to the principles of ALARA. MIP reconstructed images were created and reviewed. CONTRAST: Patient received 115 ml optiray 350 of IV contrast COMPARISON: None. FINDINGS: VASCULATURE: Right common carotid artery: Unremarkable. No occlusion or significant stenosis. No dissection. Right internal carotid artery: Unremarkable. Extracranial segment is patent with no occlusion or significant stenosis. No dissection. Right external carotid artery: Unremarkable. No occlusion. Right vertebral artery: Unremarkable. No occlusion or significant stenosis. No dissection. Left common carotid artery: Unremarkable. No occlusion or significant stenosis. No dissection. Left internal carotid artery: Unremarkable. Extracranial segment is patent with no occlusion or significant stenosis. No dissection. Left external carotid artery: Unremarkable. No occlusion. Left vertebral artery: Unremarkable. No occlusion or significant stenosis. No dissection. NECK: Bones/joints: Unremarkable. Soft tissues: Unremarkable. Lung apices: Clear. CAROTID STENOSIS REFERENCE USING NASCET CRITERIA: % ICA stenosis = (1 - narrowest ICA diameter/diameter of distal cervical ICA) x 100. Mild - <50% stenosis. Moderate - 50-69% stenosis. Severe - 70-94% stenosis. Near occlusion - 95-99% stenosis. Occluded - 100% stenosis. IMPRESSION: Negative CTA neck. Electronically signed by: Stevie Sen MD 05/18/23 20:03 PM Discharge Plan Visit Data Chief Complaint: TIA Symptoms Stated Complaint: MEMORY LOSS, SLURRING SPEECH, CHEST PAINS ED Provider: Neeta Hoyos Discharge Problem: Stroke-like symptoms, Headache Patient Disposition: Admitted As Inpatient Discharge Instructions Interventions: ED Discharge Assessment Last Done: 05/19/23 00:09
[2023-05-18] MEDS ORDERED: GLUCOSE 10 TAB/TUBE PO PRN (21:29)
[2023-05-18] MEDS ORDERED: CARBOHYDRATES FOR HYPOGLYCEMIA PO PRN ×2 (21:29→21:36)
[2023-05-18] MEDS ORDERED: GLUCAGON FOR INJ 1 MG VIAL SQ PRN (21:29)
[2023-05-18] MEDS ORDERED: GLUCOSE 40% GEL 15 GM TUBE PO PRN (21:29)
[2023-05-18] MEDS ORDERED: DEXTROSE 50% 50 ML SYRINGE IV PRN (21:29)
--- NOTE | 2023-05-18 21:29 | History & Physical Report ---
Date of Service May 18, 2023 Assessment & Plan (1) Stroke-like symptoms: (2) Headache: (3) HTN (hypertension): (4) Dyslipidemia: (5) Diabetes type I: (6) Anxiety and depression: Plan #Stroke Symptoms: -Pt with sudden onset facial droop, dysarthria, gait instability, now close to baseline - non-contrast CT head negative, CTA head and neck negative, likely TIA given negative imaging workup and rapid improvement in symptoms -MRI brain w/wo ordered -TTE ordered with bubble study - A1c, lipid panel ordered -last A1c three months ago 9.1 -Patient already on daily aspirin therapy, recommend DAPT with asprin + plavix for 21 days, then deescalate to plavix monotherapy -Continue Rosuvastatin + Zetia -Lisinopril held for permissive hypertension -Insulin sliding scale -PT/OT evaluation #Type 1 Diabetes -as above #HTN -as above #HLD -as above #Deperession/Anxiety: -Continue Lexapro History of Present Illness Primary Care Provider: Kiarra Garcia, Pt is a 52 year old male with PMHx of type 1 diabetes, HTN, HLD presenting with sx concerning for stroke. LKW around noon today, patient notes that he had sudden onset difficulty writing a check and texting his . notes that when he showed up at her work, he had a left sided facial droop, dysarthria, and gait instability. Patient also states that he had a severe headache, 9/10, that lasted throughout the afternoon. At time of evaluation, patient and agree that patient has improved markedly, feels pt is not quite at baseline, continues to notice some word finding difficulty. Patient's grandmother had a stroke at age 76, otherwise no family history of stroke. Denies known history of A-fib or other arrhythmias, on aspirin but no anticoagulants. ED Course: -CT Head negative -CTA head/neck negative Allergies Allergy/AdvReac Type Severity Reaction Status Date / Time No Known Allergies Allergy Verified 02/14/23 11:49 Home Medications Medication Instructions Recorded Confirmed Type Accu-Chek Fastclix Lancet Drum #400 ea 10/17/20 05/18/23 Rx (lancets) pen needle, diabetic 32 gauge x #400 ea 03/01/22 05/18/23 Rx 5/32" (BD Ultra-Fine Alisia Pen Needle) aspirin 81 mg tablet,delayed 81 mg PO DAILY #90 tabs 08/30/22 05/18/23 Rx release cholecalciferol (vitamin D3) 25 25 mcg PO DAILY 01/02/23 05/18/23 History mcg (1,000 unit) capsule (Vitamin D3) insulin aspart U-100 100 unit/mL 10 - 15 unit subcut TIDM 01/02/23 05/18/23 History (3 mL) subcutaneous pen (Novolog FlexPen U-100 Insulin aspart) Accu-Chek Guide test strips (blood #400 ea 02/14/23 05/18/23 Rx sugar diagnostic) insulin glargine 100 unit/mL (3 44 unit (0.44 mL) subcut QAM #45 mL 02/17/23 05/18/23 Rx mL) subcutaneous pen (Basaglar KwikPen U-100 Insulin) escitalopram oxalate 10 mg tablet 10 mg PO QAM #90 tabs 02/25/23 05/18/23 Rx blood-glucose sensor (FreeStyle #2 ea 04/04/23 05/18/23 Rx Gaby 3 Sensor device) rosuvastatin 40 mg tablet 40 mg PO DAILY #90 tabs 04/25/23 05/18/23 Rx lisinopril 20 mg tablet 20 mg PO HS #90 tabs 05/11/23 05/18/23 Rx ezetimibe 10 mg tablet 10 mg PO DAILY #90 tabs 05/18/23 05/18/23 Rx Past Med/Surg History Medical History Anger reaction Arthritis Cervical spondylosis (~05/2020) Diabetes mellitus with retinopathy Diabetes type I DM (diabetes mellitus) type I uncontrolled with renal manifestation Dyslipidemia Erectile dysfunction Flexor tendon rupture of hand Hepatic steatosis HTN (hypertension) Shoulder pain Spinal stenosis Surgical History History of esophagogastroduodenoscopy (EGD) History of tooth extraction S/P carpal tunnel release Family History Mother Dyslipidemia Hypertension Thyroid disease Grandmother (Maternal) Coronary heart disease Brother Colorectal cancer Other No family history of adverse response to anesthesia Denies family history of Ovarian cancer Prostate cancer Breast cancer Lung cancer Social History Smoking Status: Former smoker Tobacco Type: Cigarettes Age Quit Using Tobacco: 40; packs per day: 0.5; Second Hand Exposure: No; Do You Dip or Chew Tobacco: Yes; Hx Alcohol Use: Yes Alcohol type: beer Alcohol type Comment: social Alcohol Intake Frequency: Monthly or Less Hx Substance Use: No Preferred Language: Malay Communication Ability: Effective Visual Impairment: No Limitations Hearing Ability: Normal Mine Boss Required: No Beliefs That Will Affect Care: None marital status: Single Current Living Situation: Significant Other current occupational status: employed 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 Feels Safe at Home: Yes Childhood Exposure to Second-Hand Smoke: Yes Diet: regular Diet Comment: regular caffeine: Yes (coffee) during the past year weight has: remained stable Dental Care, Regularly: No Physical Activity Frequency: Does not Exercise Seatbelt Use: sometimes Sunscreen Use: No Review of Systems Review of Systems: All systems reviewed & are unremarkable except as noted in HPI & below Physical Exam Constitutional: WD/WN, vitals as above no acute distress Respiratory: normal respiratory effort, lungs clear to auscultation Cardiovascular: RRR, no murmur, no edema Musculoskeletal: 5/5 strength in upper and lower extremities, equal bilaterally Skin: no rashes, warm and dry Neurologic: AOx3, CN II-XII grossly intact, speech mildly dysarthric but pt does not have dentures in, repetition intact, no facial droop appreciated, strength 5/5 in upper and lower extremities, sensation intact and symmetrical throughout, some difficulty with rapid alternating movement with left hand, heel to amin testing in tact bilaterally Psychiatric: A+Ox3, euthymic affect Results & Data Results & Data Vital Signs (Past 12 Hours) Vital Signs Temp Pulse Resp BP Pulse Ox O2 Del Method 05/18/23 19:30 68 23 05/18/23 19:30 146/95 H 05/18/23 19:20 64 21 05/18/23 19:10 63 23 05/18/23 19:00 58 L 22 05/18/23 19:00 121/79 05/18/23 18:55 61 05/18/23 18:55 63 18 08/09/23 17:14 36.4 C L 82 20 116/70 95 Room Air Supervising Physician Co-Signing Physician Notes Patient seen and examined, chart reviewed, case discussed with Dr. Heredia and I agree with the assessment and plan as above. In brief, patient is a 52yo male with history of DM-I, HTN and HLP presenting with possible stroke. Last known well this afternoon at 12:00. Patient took his car to the weapons system instrument mechanic today and had acute onset of confusion, unable to write a check, forgot how to use his phone and was unable to call his . He then drove to his 's place of employment - she reports that he had a left sided facial droop, dysarthria, gait instability. Severe MAURER 9/10 which is unusual for him. He reports that he checked his blood sugar prior to coming to the ER and it was elevated at 257. Symptoms have been improving - patient speaking with minimal difficulty. Left sided deficit has resolved. Not yet returned to baseline. On exam he is afebrile, mildly elevated blood pressure otherwise HD stable HEENT - NC/AT, PERRL, MMM, neck supple, edentulous Heart - +S1/S2, regular, no m/r/g Lungs - CTA, no rales/rhonchi/wheezes Abd - +BS, soft, NT/ND Ext - warm, well perfused Neuro - AA&O x 4, speech is clear with very slight word finding delay, no facial droop - patient is edentulous, CN II - XII grossly intact, sensation to light touch intact, MS 5/5 in UE/LE bilaterally, mild difficulty with DORCAS noted on left hand, mild dysmetria with [id number] noted on left. Gait not assessed Labs and images reviewed. CT head, CTA Head and Neck with no acute abnormality Assessment/Plan - 52yo male with poorly controlled DM, HTN, HLP presenting with acute stroke-like symptoms that occurred earlier today. Symptoms are improving steadily. -Admit to medical with telemetry -NIHSS, Neuro checks per protocol -Dysphagia screening now and as needed -Obtain MRI brain -Obtain 2D echo with bubble study -PT/OT and Speech evaluations appreciated -ASA 81mg po daily -Plavix 75mg po daily -Crestor 40mg po daily, Zetia 10mg po daily -Lantus 18u BID with ISS -Remainder of plan as above Resident Activity Tracking Resident Involvement: Resident Care Provided Care Provided: Adult [facility]
--- NOTE | 2023-05-19 00:06 | Billing Data ---
Date of Service May 18, 2023 Coding Level of Care Code 40787 INT INP/OBS CARE
[2023-05-19] MEDS ORDERED: ONDANSETRON INJ 2 MG/ML 2 ML VIAL IV PRN (00:25)
[2023-05-19] MEDS ORDERED: SODIUM CHLORIDE 0.9% 1000ML 1,000 ML IV SCH (00:25)
[2023-05-19] MEDS ORDERED: GADOBUTROL 65ML VIAL IV ONE (01:52)
--- NOTE | 2023-05-19 02:35 | Magnetic Resonance Report ---
Exam(s): MRI HEAD W/WO Contrast IV Amt: 9cc gadavist EXAM: MR Head Without and With Intravenous Contrast CLINICAL HISTORY: Reason for exam: TIA. TECHNIQUE: Magnetic resonance images of the head/brain without and with intravenous contrast in multiple planes. CONTRAST: Patient received 9cc gadavist of IV contrast COMPARISON: No relevant prior studies available. FINDINGS: Brain: Tiny focus of restricted diffusion within the left occipital lobe. Chronic lacunar infarcts involving the right cerebellar hemisphere. No hemorrhage. Ventricles: Unremarkable. No ventriculomegaly. Bones/joints: Unremarkable. Sinuses: Unremarkable as visualized. No acute sinusitis. Mastoid air cells: Unremarkable as visualized. No mastoid effusion. Orbits: Unremarkable as visualized. IMPRESSION: 1. Acute lacunar infarct in the right occipital lobe 2. Chronic infarcts within the right cerebellar hemisphere Electronically signed by: Stevie Sen MD 05/19/23 02:34 AM
[2023-05-19] MEDS ORDERED: INSULIN ASPART PER UNIT CHARGE SC SCH (07:30)
[2023-05-19 08:10] LABS: Basophils # (auto) 0.04 K/uL (0-0.2); Basophils % (auto) 0.6 %; Eosinophils # (auto) 0.25 K/uL (0-0.50); Eosinophils % (auto) 3.5 %; Hematocrit (blood only) 41.9 % (42.0-52.0); Hemoglobin 14.5 g/dl (14.0-18.0); Immature Granulocytes # (auto) 0.02 K/uL (0.01-0.20); Immature Granulocytes % (auto) 0.3 %; Lymphocytes # (auto) 2.68 K/uL (1.2-3.4); Lymphocytes % (auto) 37.1 %; Mean Corpuscular Hemoglobin 30.3 pg (25.0-34.0); Mean Corpuscular Hgb Conc 34.6 g/dL (32.0-36.0); Mean Corpuscular Volume 87.7 fL (80.0-100.0); Mean Platelet Volume 10.4 fL (9.4-12.4); Monocytes # (auto) 0.68 K/uL (0.11-0.59); Monocytes % (auto) 9.4 %; Neutrophils # (auto) 3.55 K/uL (1.40-6.50); Neutrophils % (auto) 49.1 %; Platelet Count 224 K/uL (130-400); RDW Coefficient of Variation 12.3 % (11.5-14.5); RDW Standard Deviation 39.4 fL (36.4-46.3); Red Blood Count 4.78 M/uL (4.70-6.10); White Blood Count 7.22 K/ul (4.8-10.8)
[2023-05-19] MEDS: INSULIN ASPART PER UNIT CHARGE SC SCH ×2 (08:24→12:25)
[2023-05-19 08:44] LABS: Calcium 8.5 mg/dl (8.6-10.3); Chol HDL Ratio 5.7 (0-5); Est GFR (African American) 118.1 ml/min; Est GFR (Non-African American) 101.9 ml/min; Potassium 3.9 mmol/L (3.5-5.1)
[2023-05-19] MEDS ORDERED: ASPIRIN 81 MG ECTAB PO SCH (09:00)
[2023-05-19] MEDS ORDERED: LANTUS PER UNIT CHARGE SQ SCH ×2 (09:00)
[2023-05-19] MEDS ORDERED: EZETIMIBE 10 MG TAB PO SCH (09:00)
[2023-05-19] MEDS ORDERED: CLOPIDOGREL BISULFATE 75 MG TAB PO SCH (09:00)
[2023-05-19] MEDS ORDERED: ESCITALOPRAM OXALATE 10 MG TAB PO SCH (09:00)
[2023-05-19] MEDS ORDERED: ROSUVASTATIN CALCIUM 20 MG TAB PO SCH (09:00)
[2023-05-19 09:10] LABS: Estimated Average Glucose 200 mg/dl; Hemoglobin A1C 8.6 % (4.5-5.6)
[2023-05-19] MEDS ORDERED: PHARMACY GLYCEMIC MGMT CONSULT PRN (09:10)
--- NOTE | 2023-05-19 09:12 | Hospitalist Progress Note ---
Date of Service May 19, 2023 Assessment & Plan (1) Occipital stroke: Plan: RIGHT sided, noted on MR Brain Neurology consulted A1c pending, last check 9.1% a few months ago LDL 90s on rosuvastatin 40mg daily BP control out of acute window PT and OT ordered Continue aspirin, Plavix added to regimen Neuro consulted, appreciate recommendations, follow up outpatient (2) DM (diabetes mellitus) type I uncontrolled with renal manifestation: Plan: A1c pending as above Appreciate glycemic management pharmacy involvement, as well as merchandise clerk (3) HTN (hypertension): Plan: Typically on lisinopril 20mg daily BP normotensive off of this right now for permissive HTN Resume as necessary (4) Dyslipidemia: Plan: LDL 90s, continue rosuvastatin and ezetimibe Admission and Anticipated Discharge Date Admission Date: May 18, 2023 Results & Data Results & Data Vital Signs (Past 12 Hours) Vital Signs Temp Pulse Pulse Pulse Resp BP BP 05/19/23 08:00 05/19/23 07:43 36.3 C L 55 L 18 124/77 05/19/23 07:30 59 L 05/19/23 03:20 36.4 C L 59 L 16 113/69 05/19/23 03:17 05/19/23 03:17 36.5 C 67 18 123/80 05/19/23 00:38 59 L 05/19/23 00:25 36.5 C 67 18 123/80 05/18/23 23:01 68 16 142/93 H 05/18/23 22:57 60 05/18/23 22:30 60 23 05/18/23 22:20 62 18 05/18/23 22:10 63 16 05/18/23 22:00 119/80 05/18/23 22:00 57 L 22 05/18/23 21:50 57 L 21 05/18/23 21:40 61 18 05/18/23 21:30 64 15 05/18/23 21:30 146/73 H 05/18/23 21:20 58 L 18 05/18/23 21:10 62 18 Pulse Ox O2 Del Method 05/19/23 08:00 Room Air 05/19/23 07:43 96 Room Air 05/19/23 07:30 05/19/23 03:20 96 Room Air 05/19/23 03:17 Room Air 05/19/23 03:17 95 Room Air 05/19/23 00:38 05/19/23 00:25 95 Room Air 05/18/23 23:01 95 Room Air 05/18/23 22:57 05/18/23 22:30 05/18/23 22:20 05/18/23 22:10 05/18/23 22:00 05/18/23 22:00 05/18/23 21:50 05/18/23 21:40 05/18/23 21:30 05/18/23 21:30 05/18/23 21:20 05/18/23 21:10 PG Care Time/CCT Total # of Minutes Spent Total Time Spent with Patient: Total time spent is greater than 50% in coordination of care (as documented) at patient's floor/unit and/or counseling patient: Coding Level of Care Code 78754 SUB INP/OBS CARE 350MIN Diagnoses Occipital stroke I63.9 DM (diabetes mellitus) type I uncontrolled with renal manifestation E10.29; E10.65 HTN (hypertension) I10 Dyslipidemia E78.5
--- NOTE | 2023-05-19 10:13 | Pharmacy Report ---
Pharmacy Glycemic Short Note 2 - Date of Service May 19, 2023 - Glycemic Short BSG Results (Last 24 hours): 05/18/23 05/18/23 05/18/23 17:25 18:49 21:52 Glucose 194 H POC Glucose 128 H 85 05/18/23 05/19/23 05/19/23 23:15 07:09 08:01 Glucose 188 H POC Glucose 75 175 H OUTPATIENT ANTIDIABETIC REGIMEN: * Basaglar 40 units SC qAM (confirmed with patient that he took this 8/9 AM as an outpatient prior to arrival) * Novolog 10-15 units SC TIDM * HbA1c 8.6% on 05/19/23 ASSESSMENT: * 52 yo M with type 1 diabetes admitted with stroke. No prior admissions to reference r/e glycemic needs. * BSG's declined overnight with near-hypoglycemia at midnight, but then jumped up to 175 mg/dL this AM * A reduction in Lantus is reasonable given near-hypoglycemia overnight, but hesitant for it to be a significant reduction both 2nd T1DM and due to AM increase in BSG. Will therefore reduce Lantus by 10% * Will estimate Novolog using basal insulin as a reference - seems to be about a 50/50 split as an outpatient with seems reasonable. Parameter will be slightly tighter than weight-based moderate stress estimate. May need to tighten especially the CHO ratio given patient takes 10-15 units with meals as an outpatient but hesitant to start with similar initially due to near hypoglycemia last night and also no prior admission data to go by PLAN FOR INPATIENT GLYCEMIC CONTROL: * Basal insulin * Lantus 18+18 units SQ this AM. Ongoing dependent on BSG trend. * Bolus insulin * NovoLog per scale ACHS or Q6hrs while NPO * Goal Range: Low 110 mg/dL - High 140 mg/dL * Correction Factor: 25 mg/dL/unit * Nutritional / Prandial insulin per carb ratio of 1 unit per 8 grams CHO consumed
[2023-05-19] MEDS ORDERED: PHARMACIST DISCHARGE MED REC CONSULT PRN (10:14)
[2023-05-19] MEDS ORDERED: LANTUS PER UNIT CHARGE SQ ONE (10:15)
--- NOTE | 2023-05-19 10:26 | XCELERA ---
[id number] [id number]
--- NOTE | 2023-05-19 10:29 | Pharmacy Report ---
- Date of Service May 19, 2023 - Pharmacy CVA/TIA Medication Review Medications to Prevent Stroke handout has been added to the patients discharge packet. Antiplatelet(s) * Aspirin, clopidogrel Cholesterol * High intensity statin: rosuvastatin 40 mg daily DVT Prophylaxis * Not ordered pharmacologic DVT ppx nor SCD knee/thigh. Dr. Hinton notified. Therapeutic Anticoagulation * No history of Afib/Aflutter noted Type 2 Diabetes * Patient has T1DM, however, given insulin requirements as an outpatient may also have mixed T1DM/T2DM. Discussed with Dr. Hinton - a diabetes medication with proven CVD benefit will be deferred to their outpatient provider due to familiarity with risks/benefits of such therapies. "Medications to prevent stroke" handout has already been added to the patient's discharge packet, which instructs the patient to follow up with their outpatient provider to evaluate which diabetes medication with proven CVD benefit may be best for them
--- NOTE | 2023-05-19 11:05 | Electrocardiogram Report ---
Test Reason : Blood Pressure : / mmHG Vent. Rate : 064 BPM Atrial Rate : 064 BPM P-R Int : 186 ms QRS Dur : 090 ms QT Int : 374 ms P-R-T Axes : 040 023 048 degrees QTc Int : 385 ms Normal sinus rhythm Confirmed by Rashel Oliver ([id number]) on 05/19/2023 11:05:10 AM Referred By: REFERRED SELF Confirmed By:Alexander Oliver
--- NOTE | 2023-05-19 11:32 | Neurology Consultation ---
Date of Consultation May 19, 2023 Assessment & Plan (1) Occipital stroke: Small occipital stroke which does not explain the symptoms he presented with yesterday. Would expect perhaps subtle vision changes only. This suggest a potentially larger stroke that was ultimately a TIA. While the echo does note a PFO with his risk factors of diabetes and HTN and his age, his ROPE score is only a 5. Would still proceed with LE dopplers but otherwise he does not appear to be an appropriate candidate for PFO closure. Would recommend further cardiac monitoring with a zio patch. Given the TIA symptoms dual antiplatelet for 21 days and then plavix is appropriate. -- LE dopplers - anticoagulation if DVT+ is appropriate, would then stop antiplatelets. -- Event monitor at discharge -- Aspirin and plavix for 21 days, then plavix alone -- No further need for permissive HTN -- Therapy evals but suspect he could go home after testing is complete -- Recommend neuro follow-up in 4-6 weeks Telehealth Consultation Telehealth Information Telehealth Information: I performed this visit using a real-time telehealth connection between my location and the patients location ([facility]). After conn ecting through interactive tele-video, patient was identified by name and date of and/or wristband check.Patient (or authorized healthcare energy conservation representative) was informed that this was a telemedicine visit and it was being conducted confidentially over secure lines. My office door was closed and no one else was present in the room with me.Patient (or authorized healthcare energy conservation representative) provided consent to proceed with the visit, expressed an understanding of privacy and security of the telemedicine visit, and gave permission to have a hospital energy conservation representative in the room in order to assist with the visit and to conduct portions of the visit, as needed. I informed the patient (or authorized healthcare energy conservation representative) that I reviewed their record and presented the opportunity for them to ask any questions regarding the visit today. The patient agreed to participate. History of Present Illness Reason for Consultation: Stroke Requesting Physician: Dr. Hinton Attending Physician: Yue Hinton, DO History of Present Illness Krystina Novak is a 52 yo M presenting yesterday after developing a facial droop, slurred speech and difficulty with his memory/confusion after work. His at bedside reports that he could not figure out what he was supposed to do with his work truck nor write things appropriately. They deny any weakness, numbness, vision changes but the patient does report having a headache which is unusual for him. He has no history of stroke or headache in the past. Today he feels just tired having not slept well. There is no further facial droop and he denies any residual memory problems. Allergies Allergy/AdvReac Type Severity Reaction Status Date / Time No Known Allergies Allergy Verified 02/14/23 11:49 Home Medications Medication Instructions Recorded Confirmed Type Accu-Chek Fastclix Lancet Drum #400 ea 10/17/20 05/18/23 Rx (lancets) pen needle, diabetic 32 gauge x #400 ea 03/01/22 05/18/23 Rx 5/32" (BD Ultra-Fine Alisia Pen Needle) aspirin 81 mg tablet,delayed 81 mg PO DAILY #90 tabs 08/30/22 05/18/23 Rx release cholecalciferol (vitamin D3) 25 25 mcg PO DAILY 01/02/23 05/18/23 History mcg (1,000 unit) capsule (Vitamin D3) insulin aspart U-100 100 unit/mL 10 - 15 unit subcut TIDM 01/02/23 05/18/23 History (3 mL) subcutaneous pen (Novolog FlexPen U-100 Insulin aspart) Accu-Chek Guide test strips (blood #400 ea 02/14/23 05/18/23 Rx sugar diagnostic) escitalopram oxalate 10 mg tablet 10 mg PO QAM #90 tabs 02/25/23 05/18/23 Rx blood-glucose sensor (FreeStyle #2 ea 04/04/23 05/18/23 Rx Gaby 3 Sensor device) rosuvastatin 40 mg tablet 40 mg PO DAILY #90 tabs 04/25/23 05/18/23 Rx lisinopril 20 mg tablet 20 mg PO HS #90 tabs 05/11/23 05/18/23 Rx ezetimibe 10 mg tablet 10 mg PO DAILY #90 tabs 05/18/23 05/18/23 Rx insulin glargine 100 unit/mL (3 40 unit subcut QAM 05/19/23 05/19/23 History mL) subcutaneous pen (Basaglar KwikPen U-100 Insulin) Patient History Medical History Anger reaction Arthritis Cervical spondylosis (~05/2020) Diabetes mellitus with retinopathy Diabetes type I DM (diabetes mellitus) type I uncontrolled with renal manifestation Dyslipidemia Erectile dysfunction Flexor tendon rupture of hand Hepatic steatosis HTN (hypertension) Shoulder pain Spinal stenosis Surgical History History of esophagogastroduodenoscopy (EGD) History of tooth extraction S/P carpal tunnel release Family History Mother Dyslipidemia Hypertension Thyroid disease Grandmother (Maternal) Coronary heart disease Brother Colorectal cancer Other No family history of adverse response to anesthesia Denies family history of Ovarian cancer Prostate cancer Breast cancer Lung cancer Social History Smoking Status: Former smoker Tobacco Type: Cigarettes Age Quit Using Tobacco: 40; packs per day: 0.5; Second Hand Exposure: No; Do You Dip or Chew Tobacco: Yes; Hx Alcohol Use: Yes Alcohol type: beer Alcohol type Comment: social Alcohol Intake Frequency: Monthly or Less Hx Substance Use: No Preferred Language: Chinese Communication Ability: Effective Visual Impairment: No Limitations Hearing Ability: Normal Concrete Pourer Required: No Beliefs That Will Affect Care: None marital status: Single Current Living Situation: Significant Other current occupational status: employed 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 Oriented to person, place, and time. Fluent. Comprehension intact. Affect appropriate. Cranial Nerves: II: Reads NIHSS cards, pupils 3/3 to 2/2, samano grossly intact. III/IV/: Versions intact without nystagmus, no gaze preference. VII: Facial expression symmetric VIII: Hearing intact to voice IX/X: Palate elevates symmetrically XI: Shoulder shrug symmetric XII: Tongue midline Motor: Strength was symmetric and antigravity throughout. Pronator drift was absent. There were no abnormal movements. Coordination: No dysmetria Reflexes: Unable to assess over telemedicine Results & Data Vital Signs (Past 12 Hours) Vital Signs Temp Pulse Pulse Resp BP Pulse Ox O2 Del Method 05/19/23 08:00 Room Air 05/19/23 07:43 36.3 C L 55 L 18 124/77 96 Room Air 05/19/23 07:30 59 L 05/19/23 03:20 36.4 C L 59 L 16 113/69 96 Room Air 05/19/23 03:17 Room Air 05/19/23 03:17 36.5 C 67 18 123/80 95 Room Air 05/19/23 00:38 59 L 05/19/23 00:25 36.5 C 67 18 123/80 95 Room Air Laboratory Results Abnormal lab results 05/18/23 05/18/23 05/18/23 Range/Units 17:25 17:25 18:49 Hct 40.9 L (42.0-52.0) % [place] # (Auto) 0.83 H (0.11-0.59) K/uL Sodium 134 L (136-145) mmol/L Chloride (98-107) mmol/L Glucose 194 H (70-99(Fasting)) mg/dl POC Glucose 128 H (70-99) mg/dl Hemoglobin A1c (4.5-5.6) % Calcium (8.6-10.3) mg/dl Triglycerides (0-150) mg/dl VLDL Cholesterol, Calc (0-30) mg/dl Cholesterol/HDL Ratio (0-5) 05/19/23 05/19/23 05/19/23 Range/Units 07:09 07:09 07:09 Hct 41.9 L (42.0-52.0) % [place] # (Auto) 0.68 H (0.11-0.59) K/uL Sodium (136-145) mmol/L Chloride 108 H (98-107) mmol/L Glucose 188 H (70-99(Fasting)) mg/dl POC Glucose (70-99) mg/dl Hemoglobin A1c 8.6 H (4.5-5.6) % Calcium 8.5 L (8.6-10.3) mg/dl Triglycerides 295 H (0-150) mg/dl VLDL Cholesterol, Calc 59 H (0-30) mg/dl Cholesterol/HDL Ratio 5.7 H (0-5) 05/19/23 Range/Units 08:01 Hct (42.0-52.0) % [place] # (Auto) (0.11-0.59) K/uL Sodium (136-145) mmol/L Chloride (98-107) mmol/L Glucose (70-99(Fasting)) mg/dl POC Glucose 175 H (70-99) mg/dl Hemoglobin A1c (4.5-5.6) % Calcium (8.6-10.3) mg/dl Triglycerides (0-150) mg/dl VLDL Cholesterol, Calc (0-30) mg/dl Cholesterol/HDL Ratio (0-5) Diagnostic Findings MRI brain - small punctate infarct in the L occipital lobe CTA head and neck - scattered mild atherosclerotic disease without significant stenosis
--- NOTE | 2023-05-19 14:21 | Ultrasound Report ---
ULTRASOUND BILATERAL LOWER EXTREMITY VENOUS CLINICAL HISTORY: Stroke. Patent foramen ovale. COMPARISON STUDY: Left lower extremity venous ultrasound dated 10/20/2016. TECHNIQUE: Real-time, grayscale, and color Doppler sonography of the deep veins of the right and left lower extremity was performed from the inguinal crease to the calf. Compression and augmentation wer e utilized. FINDINGS: There is no sonographic evidence of deep venous thrombosis identified in the right or left lower extremity. The common femoral, superficial femoral, and popliteal veins are patent and normally compressible bilaterally. The greater saphenous vein and the profunda femoris vein at the junction w ith the common femoral vein are clear in both legs. The visualized calf veins are patent bilaterally. IMPRESSION: There is no sonographic evidence of deep venous thrombosis identified in the right or lef t lower extremity. ACT 112: Negative or not required by law. Electronically signed by: Darrick Duckworth M.D. 05/19/2023 2:19 PM
[2023-05-19] MEDS ORDERED: STROKE PATIENT DISCHARGE STA (14:25)
--- NOTE | 2023-05-19 14:26 | Discharge Summary ---
Discharge Summary Date of Service May 19, 2023 Admission HPI Per Admitting Provider Pt is a 52 year old male with PMHx of type 1 diabetes, HTN, HLD presenting with sx concerning for stroke. LKW around noon today, patient notes that he had sudden onset difficulty writing a check and texting his . notes that when he showed up at her work, he had a left sided facial droop, dysarthria, and gait instability. Patient also states that he had a severe headache, 9/10, that lasted throughout the afternoon. At time of evaluation, patient and agree that patient has improved markedly, feels pt is not quite at baseline, continues to notice some word finding difficulty. Patient's grandmother had a stroke at age 76, otherwise no family history of stroke. Denies known history of A-fib or other arrhythmias, on aspirin but no anticoagulants. ED Course: -CT Head negative -CTA head/neck negative Admission Exam Per Admitting Provider Constitutional: WD/WN, vitals as above no acute distress Respiratory: normal respiratory effort, lungs clear to auscultation Cardiovascular: RRR, no murmur, no edema Musculoskeletal: 5/5 strength in upper and lower extremities, equal bilaterally Skin: no rashes, warm and dry Neurologic: AOx3, CN II-XII grossly intact, speech mildly dysarthric but pt does not have dentures in, repetition intact, no facial droop appreciated, strength 5/5 in upper and lower extremities, sensation intact and symmetrical throughout, some difficulty with rapid alternating movement with left hand, heel to amin testing in tact bilaterally Psychiatric: A+Ox3, euthymic affect Principal Dx & Hospital Course #1 = Principal Diagnosis (1) Occipital stroke: RIGHT sided, noted on MR Brain A1c 8.6%, improved from previous since starting Jardiance LDL 90s on rosuvastatin and ezetimibe BP control with home lisinopril PT and OT ordered, did well no needs Continue DAPT x21 days, then Plavix alone Event monitor to be arranged outpatient Echo showed small PFO, no DVT on bilateral LE dopplers, no indication for repair Patient not a smoker Neuro consulted, appreciate recommendations, follow up outpatient (2) DM (diabetes mellitus) type I uncontrolled with renal manifestation: A1c as above Appreciate glycemic management pharmacy involvement, 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 (3) HTN (hypertension): Typically on lisinopril 20mg daily Resume on discharge (4) Dyslipidemia: LDL 90s, continue rosuvastatin and ezetimibe Discharge Exam Constitutional WD/WN, vitals as above Respiratory normal respiratory effort, lungs clear to auscultation Cardiovascular RRR, no murmur, no edema Musculoskeletal no calf tenderness or swelling Neurologic no facial droop, no slurred speech, motor strength bilateral upper and lower extremities is intact Updated Medication List Medication Instructions Recorded Confirmed Type Accu-Chek Fastclix Lancet Drum #400 ea 10/17/20 05/18/23 Rx (lancets) pen needle, diabetic 32 gauge x #400 ea 03/01/22 05/18/23 Rx 5/32" (BD Ultra-Fine Alisia Pen Needle) aspirin 81 mg tablet,delayed 81 mg PO DAILY #90 tabs 08/30/22 05/18/23 Rx release cholecalciferol (vitamin D3) 25 25 mcg PO DAILY 01/02/23 05/18/23 History mcg (1,000 unit) capsule (Vitamin D3) insulin aspart U-100 100 unit/mL 10 - 15 unit subcut TIDM 01/02/23 05/18/23 History (3 mL) subcutaneous pen (Novolog FlexPen U-100 Insulin aspart) Accu-Chek Guide test strips (blood #400 ea 02/14/23 05/18/23 Rx sugar diagnostic) escitalopram oxalate 10 mg tablet 10 mg PO QAM #90 tabs 02/25/23 05/18/23 Rx blood-glucose sensor (FreeStyle #2 ea 04/04/23 05/18/23 Rx Gaby 3 Sensor device) rosuvastatin 40 mg tablet 40 mg PO DAILY #90 tabs 04/25/23 05/18/23 Rx lisinopril 20 mg tablet 20 mg PO HS #90 tabs 05/11/23 05/18/23 Rx ezetimibe 10 mg tablet 10 mg PO DAILY #90 tabs 05/18/23 05/18/23 Rx clopidogrel 75 mg tablet 75 mg PO QAM 30 days #30 tabs 05/19/23 Rx empagliflozin 10 mg tablet mg 05/19/23 History (Jardiance) insulin glargine 100 unit/mL (3 40 unit subcut QAM 05/19/23 05/19/23 History mL) subcutaneous pen (Basaglar KwikPen U-100 Insulin) Hospital Stay Data Consultations 05/18/23 20:23 ED Decision to Admit Stat 05/19/23 09:05 Consult Neurology Routine Diagnostic Imagining Performed 05/18/23 17:[address] [CT head/brain wo con] Stat 05/18/23 19:26 CT angio head w con Stat CT angio neck with con Stat 05/19/23 00:25 MR brain wo/w con Routine 05/19/23 12:39 US venous doppler LE BI Routine Pending Results Patient Have Any Pending Studies at Discharge: No Discharge Instructions Given to Patient (Per Discharging Provider) You were admitted for evaluation and management of a stroke. You were started on a medication called Plavix, this helps the aspirin prevent blood from sticking together to make a clot. You will be on both aspirin and Plavix for 3 weeks, then can rojas be on just Plavix after that (can stop aspirin after 3 weeks). Plavix was sent to [facility] in [place]. You should continue your lisinopril, rosuvastatin, ezetimibe, and blood sugar control. You should continue your insulins and Jardiance and keep working with your doctors for blood sugar control to decrease risk of future strokes or heart attacks. We have ordered an event monitor through the Cardiology office; please call [phone] to talk to the Cardiology office about the event monitor. This will look for arrhythmias which can increase risks of stroke. We looked for blood clots in the legs; fortunately no evidence of a blood clot in your legs. If you have worsening of symptoms, or things such as chest pain or difficulty breathing, please return for evaluation. Total Time Total Time Spent Total Time Spent (In Minutes): 40 minutes Coding Level of Care Code 28820 INP/OBS DISCH >30 MIN Diagnoses Occipital stroke I63.9 DM (diabetes mellitus) type I uncontrolled with renal manifestation E10.29; E10.65 HTN (hypertension) I10 Dyslipidemia E78.5
== END 2023-05-19 15:55 | disposition home or self-care (01) | DRG 66 ==
LOC: ED 17:10 → 2N 21:14 → SUATTDRO 21:14 → 2N 05-19 00:09

== ENCOUNTER 2025-01-04 14:32 | Inpatient (IN) ==
--- NOTE | 2025-01-04 16:16 | Emergency Department Note ---
Impression & Plan Cellulitis, Dog bite ED Provider Note CHIEF COMPLAINT: Dog bite HISTORY OF PRESENTING ILLNESS: The patient is a 54-year-old male who arrives to the emergency department for evaluation of injury sustained to the left hand. He reports on Tuesday he was bit by his own dog when he was trying to put medicine on the dog. He reports pain, swelling, and redness now extending up the hand into his arm. He states the most painful part is his middle digit of the hand. He reports he is able to perform range of motion, however due to swelling he is not able to close the fist fully. He reports his tetanus is not currently up-to-date. He states his dog is up-to-date on vaccinations though. REVIEW OF SYSTEMS: See HPI for pertinent positives and pertinent negatives. ALLERGIES: See below MEDICATIONS: See below PAST MEDICAL HISTORY: Stable PHYSICAL EXAM: VITALS: Vitals are noted on the nurse's note and reviewed by myself. Vital signs stable. GENERAL: 54-year-old male, in no acute distress, nondiaphoretic, well-developed well-nourished. SKIN: Erythema and edema extending from the PIP joint of the left third digit of the hand, to the mid hand, with erythema extending to the wrist. HEAD: Normocephalic atraumatic. MUSCULOSKELETAL: Limited ROM of third digit of left hand, secondary to edema, and pain. Full ROM, left wrist. Distance Learning Program Coordinator strength 4/5. Radial pulse intact. NEURO: Patient was alert and oriented to person place and time. No focal neurological deficits. DIFFERENTIAL DIAGNOSIS: Cellulitis, abscess, MRSA infection, necrotizing fasciitis, dermatitis, drug eruption, allergic reaction, fracture, as well as other pathologies. ED COURSE AND MEDICAL DECISION MAKING: MEDICATIONS GIVEN: 3 g IV Unasyn INTERPRETATION OF LABS: I interpreted the labs with full lab results as below in the lab section of this note. Pertinent lab results discussed in the MDM section below. INTERPRETATION OF IMAGING: Imaging studies were interpreted by myself and read by radiology as per the imaging section of this note. MDM SUMMARY: The patient is a pleasant 54-year-old male who arrives to the emergency department for evaluation of the above-stated complaint. A saline lock was established, CBC, CMP were obtained. CBC shows no leukocytosis, no anemia. CMP shows elevated BSG 264, with no other concerning findings. X-ray imaging was obtained which per my interpretation shows no acute bony abnormality, no foreign body. The patient was placed on IV Unasyn, and boosted for tetanus. Due to the extent of erythema and edema, I do believe the patient will require admission to the hospital for IV antibiotics. I consulted Dr. Laura from orthopedics who agreed to see the patient during his admission. [facility], Dr. Vivar, agreed to accept the patient under his care. Please refer to his documentation for further patient workup and care. DIAGNOSIS: Dog bite, cellulitis The chart was completed utilizing [employer] voice recognition software. Grammatical errors, random word insertions, pronoun errors, and incomplete sentences are an occasional consequence of this system due to software limitations, ambient noise, and hardware issues. Any formal questions or concerns about the content, text, or information contained within the body of this dictation should be directly addressed to the provider for clarification. Past Med/Surg History Problem List (Updated 01/04/25 @ 20:02 by TERA Urias) Dog bite (Acute) Cellulitis (Acute) History of CVA (cerebrovascular accident) Diabetic nephropathy Mild nonproliferative diabetic retinopathy associated with type 1 diabetes mellitus Persistent microalbuminuria associated with type 1 diabetes mellitus Type 1 diabetes mellitus (Chronic) Abnormality of gait due to impairment of balance Spondylolisthesis of cervicothoracic region Osteophyte of cervical spine Degenerative cervical spinal stenosis PFO (patent foramen ovale) Cervical spondylosis with myelopathy and radiculopathy Snuff user Occipital stroke Flexor tendon rupture of hand Carpal tunnel syndrome, left Brachial plexopathy Anxiety and depression Numbness of left hand Cervical spondylosis (~05/2020) Hepatic steatosis PT DENIES Erectile dysfunction Spinal stenosis Dyslipidemia HTN (hypertension) Medical History Shoulder pain LEFT Arthritis Anger reaction REASON FOR LEXAPRO PER PATIENT Surgical History History of esophagogastroduodenoscopy (EGD) History of tooth extraction S/P carpal tunnel release RT Family History Mother Dyslipidemia Hypertension Thyroid disease Grandmother (Maternal) Coronary heart disease Brother Colorectal cancer Other No family history of adverse response to anesthesia Denies family history of Ovarian cancer Prostate cancer Breast cancer Lung cancer Social History Smoking Status: Never smoker Tobacco Type: Cigarettes Age Started Using Tobacco: 19; Age Quit Using Tobacco: 29; packs per day: 0.5; Second Hand Exposure: No; Do You Dip or Chew Tobacco: Yes; Hx Alcohol Use: Yes Alcohol type: beer Alcohol type Comment: social Alcohol Intake Frequency: Monthly or Less Hx Substance Use: No Preferred Language: Hebrew Communication Ability: Effective Visual Impairment: No Limitations Hearing Ability: Normal Phlebotomy Services Representative Required: No Beliefs That Will Affect Care: None marital status: Single Current Living Situation: Significant Other current occupational status: employed 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 Feels Safe at Home: Yes Childhood Exposure to Second-Hand Smoke: Yes Diet: regular Diet Comment: regular caffeine: Yes (coffee) during the past year weight has: remained stable Dental Care, Regularly: No Physical Activity Frequency: Does not Exercise Seatbelt Use: sometimes Sunscreen Use: No Assistive Devices: None Allergies Allergies Allergy/AdvReac Type Severity Reaction Status Date / Time No Known Allergies Allergy Verified 11/28/24 10:04 Home Meds Home Medications Medication Instructions Recorded Confirmed cholecalciferol (vitamin D3) 25 25 mcg PO PM 01/02/23 01/04/25 mcg (1,000 unit) capsule (Vitamin D3) insulin glargine 100 unit/mL (3 42 unit subcut QAM 08/22/24 01/04/25 mL) subcutaneous pen (Lantus Solostar U-100 Insulin) clopidogrel 75 mg tablet 75 mg PO PM 01/04/25 01/04/25 empagliflozin 10 mg tablet 10 mg PO PM 01/04/25 01/04/25 (Jardiance) escitalopram oxalate 10 mg tablet 10 mg PO PM 01/04/25 01/04/25 ezetimibe 10 mg tablet 10 mg PO PM 01/04/25 01/04/25 finerenone 10 mg tablet (Kerendia) 10 mg PO UD 01/04/25 01/04/25 meloxicam 15 mg tablet 15 mg PO PM 01/04/25 01/04/25 rosuvastatin 40 mg tablet 40 mg PO PM 01/04/25 01/04/25 Previous Rx's Medication Instructions Recorded pen needle, diabetic 32 gauge x #400 ea 08/24/23 532" (BD Ultra-Fine Alisia Pen Needle) Accu-Chek Guide test strips (blood #400 ea 04/30/24 sugar diagnostic) Accu-Chek Fastclix Lancet Drum #400 ea 05/02/24 (lancets) insulin aspart U-100 100 unit/mL 10 - 15 unit (0.1 - 0.15 mL) 11/28/24 (3 mL) subcutaneous pen (Novolog subcut TIDM #45 mL FlexPen U-100 Insulin aspart) lisinopril 20 mg tablet 20 mg PO HS #90 tabs 11/28/24 peg 3350-sod sulf,[id number] See Rx Instructions PO .COMPLEX #2 12/26/24 178.7-7.3-0.5-1.12-0.9 gram oral mL soln (Suflave) Results & Data (ED) Vital Signs Vital Signs - 24 hr 01/04/25 14:36 01/04/25 19:15 Temperature 36.7 C Temperature Source Temporal Artery Scan Pulse Rate 85 Pulse Rate [Apical] 64 Respiratory Rate 20 20 Respiratory Effort / Characteristics Non-Labored Spontaneous Non-Labored Spontaneous Respiratory Depth Normal Blood Pressure 141/85 H Blood Pressure [Right Arm] 152/87 H Blood Pressure Mean 103 Blood Pressure Mean [Right Arm] 108 Pulse Oximetry 98 98 Oxygen Delivery Method Room Air Room Air Sepsis Recent Fever Within 48 Hours No Sepsis New/Unexplained Change in Mental Status No Sepsis Action Taken by Nursing No Action Required Home Medications Current Medication List: was personally reviewed by me Laboratory Data Attestation: I reviewed the patient's lab results. 01/04/25 16:20 01/04/25 16:20 Lab Results 01/04/25 Range/Units 16:20 WBC 9.82 (4.8-10.8) K/ul RBC 5.25 (4.70-6.10) M/uL Hgb 16.0 (14.0-18.0) g/dl Hct 46.4 (42.0-52.0) % MCV 88.4 (80.0-100.0) fL MCH 30.5 (25.0-34.0) pg MCHC 34.5 (32.0-36.0) g/dL RDW Std Deviation 38.9 (36.4-46.3) fL RDW Coeff of Bernard 11.9 (11.5-14.5) % Plt Count 233 (130-400) K/uL MPV 10.3 (9.4-12.4) fL Immature Gran % (Auto) 0.3 % Neut % (Auto) 69.1 % Lymph % (Auto) 19.1 % [place] % (Auto) 9.1 % Eos % (Auto) 1.9 % Baso % (Auto) 0.5 % Neut # (Auto) 6.78 H (1.40-6.50) K/uL Lymph # (Auto) 1.88 (1.20-3.40) K/uL [place] # (Auto) 0.89 H (0.11-0.59) K/uL Eos # (Auto) 0.19 (0.00-0.50) K/uL Baso # (Auto) 0.05 (0.00-0.20) K/uL Immature Gran # (Auto) 0.03 (0.01-0.20) K/uL Sodium 135 L (136-145) mmol/L Potassium 4.3 (3.5-5.1) mmol/L Chloride 101 (98-107) mmol/L Carbon Dioxide 28 (21-32) mmol/L Anion Gap 6 (3-11) BUN 17 (6-23) mg/dl Creatinine 0.91 (0.6-1.4) mg/dl Est Cr Clr Drug Dosing 103.8 ml/min eGFR 100.78 BUN/Creatinine Ratio 18.7 (10-20) Glucose 264 H (70-99(Fasting)) mg/dl Calcium 9.3 (8.6-10.3) mg/dl Administered Medications Discontinued Medications Diphtheria/Pertussis/Tetanus Vacc (Diphther/Tetan/Pertus Vaccine (Tdap, Adol/Adult) 0.5ml) 0.5 ml IM .ONCE ONE Stop: 01/04/25 16:17 Last Admin: 01/04/25 16:32 Dose: 0.5 ml Documented By: KALANI Ampicillin Sodium/Sulbactam Sodium (Unasyn) 3,000 mg in 100 mls @ 200 mls/hr IV NOW STA Stop: 01/04/25 16:45 Last Infusion: 01/04/25 17:01 Dose: Infused Documented By: Admin: 01/04/25 16:33 Dose: 200 mls/hr Documented By: KALANI Imaging Data Attestation: I personally reviewed and interpreted this imaging study as follows: Radiologist's Impression: Hand X-Ray 01/04/25 16:16 Clinical History: Dog bite 4 views of the left hand are submitted for review. Findings: No fracture or dislocation is seen. There is mild osteoarthritis of the interphalangeal joints. No other osseous abnormality is identified. There are no radiopaque foreign bodies. Vascular calcifications are present. There is some soft tissue swelling of the middle finger Impression: 1. No definite fracture or foreign body 2. Mild osteoarthritis Electronically signed by Ino Rolle 01-04-2025 5:13 PM Discharge Plan Visit Data Chief Complaint: Animal Bite Stated Complaint: LT HAND DOG BITE ED Provider: Darrick Pepe ED Midlevel Provider: Veronica Hickey Discharge Problem: Cellulitis, Dog bite Forms Stand Alone Forms: DNA SEQ [facility] [employer] Prescriptions Prescriptions: No Action (DME) Accu-Chek Guide test strips Strip See Rx Instructions .ROUTE .MEDSUPPLY Qty: 400 1RF Rx Instructions: test 4 times daily (DME) lancets [Accu-Chek Fastclix Lancet Drum] Misc See Rx Instructions .ROUTE .MEDSUPPLY Qty: 400 1RF Rx Instructions: test 4 times daily Suflave 178.7-7.3-0.5 gram recon soln See Rx Instructions PO .COMPLEX Qty: 2 0RF Rx Instructions: orally; orally; TAKE FIRST DOSE AT 6 PM AND SECOND DOSE 6 HOURS PRIOR TO PROCEDURE BIN: [id number] N: 2000 GROUP: [id number] (DME) pen needle, diabetic [BD Ultra-Fine Alisia Pen Needle] 32 gauge x 5/32" needle See Rx Instructions .ROUTE .MEDSUPPLY Qty: 400 1RF Rx Instructions: use 4 needles daily insulin glargine [Lantus Solostar U-100 Insulin] 100 unit/mL (3 mL) insulin pen 42 unit subcut QAM insulin aspart U-100 [Novolog FlexPen U-100 Insulin] 100 unit/mL (3 mL) insulin pen 10 - 15 unit subcut TIDM MDD 50 units Qty: 45 1RF Rx Instructions: Inject 10-15 units three times a day with meals lisinopril 20 mg tablet 20 mg PO HS Qty: 90 1RF cholecalciferol (vitamin D3) [Vitamin D3] 25 mcg (1,000 unit) Capsule 25 mcg PO PM meloxicam 15 mg tablet 15 mg PO PM clopidogrel 75 mg tablet 75 mg PO PM escitalopram oxalate 10 mg tablet 10 mg PO PM ezetimibe 10 mg tablet 10 mg PO PM rosuvastatin 40 mg tablet 40 mg PO PM Jardiance 10 mg tablet 10 mg PO PM Kerendia 10 mg tablet 10 mg PO UD Rx Instructions: 10 mg po daily. pt wasnt too sure about this medication. last filled 08/22 30 day supply Referrals Referrals: Kiarra Garcia DO [Primary Care Provider] -
[2025-01-04] MEDS: DIPHTHER/TETAN/PERTUS Vaccine (Tdap, Adol/Adult) 0.5mL IM ONE (16:32)
[2025-01-04] MEDS: AMPICILLIN/SULBACTAM SOD 3,000 MG/100 ML BAG IV STA (16:33)
[2025-01-04 16:50] LABS: Basophils # (auto) 0.05 K/uL (0.00-0.20); Basophils % (auto) 0.5 %; Eosinophils # (auto) 0.19 K/uL (0.00-0.50); Eosinophils % (auto) 1.9 %; Hematocrit (blood only) 46.4 % (42.0-52.0); Immature Granulocytes # (auto) 0.03 K/uL (0.01-0.20); Immature Granulocytes % (auto) 0.3 %; Lymphocytes # (auto) 1.88 K/uL (1.20-3.40); Lymphocytes % (auto) 19.1 %; Mean Corpuscular Hemoglobin 30.5 pg (25.0-34.0); Mean Corpuscular Hgb Conc 34.5 g/dL (32.0-36.0); Mean Corpuscular Volume 88.4 fL (80.0-100.0); Mean Platelet Volume 10.3 fL (9.4-12.4); Monocytes # (auto) 0.89 K/uL (0.11-0.59); Monocytes % (auto) 9.1 %; Neutrophils # (auto) 6.78 K/uL (1.40-6.50); Neutrophils % (auto) 69.1 %; Platelet Count 233 K/uL (130-400); RDW Coefficient of Variation 11.9 % (11.5-14.5); RDW Standard Deviation 38.9 fL (36.4-46.3); Red Blood Count 5.25 M/uL (4.70-6.10); White Blood Count 9.82 K/ul (4.8-10.8)
[2025-01-04 17:01] LABS: BUN Creatinine Ratio 18.7 (10-20); Calcium 9.3 mg/dl (8.6-10.3); Creatinine Clr Calc Pharmacy 103.8 ml/min; Potassium 4.3 mmol/L (3.5-5.1)
--- NOTE | 2025-01-04 17:14 | XRay Report ---
Clinical History: Dog bite 4 views of the left hand are submitted for review. Findings: No fracture or dislocation is seen. There is mild osteoarthritis of the interphalangeal joints. No other osseous abnormality is identified. There are no radiopaque foreign bodies. Vascular calcifications are present. There is some soft tissue swelling of the middle finger Impression: 1. No definite fracture or foreign body 2. Mild osteoarthritis Electronically signed by Ino Rolle 01-04-2025 5:13 PM
--- NOTE | 2025-01-04 18:10 | History & Physical Report ---
Date of Service January 04, 2025 Assessment & Plan (1) Cellulitis: Plan: Left hand cellulitis 2/2 dog bite week prior to presentation No signs of tenosynovitis at time of admitting assessment. Localized swelling, erythema and pain at the third left MCP/PIP Received tetanus shot Continue Unasyn Orthopedics consulted X-ray without fracture or other abnormality No leukocytosis She is not septic on admitting assessment Type I DM Continue home glargine, and scaled SSI Goal BSG [id number] Glucose checks AC/at bedtime DM diet Hypertension Continue lisinopril History of prior CVA No recent/new strokelike deficits Continue Plavix, statin Anxiety/depression Continue escitalopram DVT prophylaxis: Heparin SQ for 24 hours pending surgical evaluation, if no surgical intervention is anticipated switch to Lovenox CODE STATUS: Full code Disposition: MSO Diet: DM 1. If worsening pain/symptoms or dissipated surgical intervention, make n.p.o. at midnight. (2) Type 1 diabetes mellitus: History of Present Illness Primary Care Provider: DO Maite Obrien is a 54-year-old male with a past medical history of type I DM, CVA, PFO, anxiety/depression, hypertension who presented for evaluation of a left hand animal bite with subsequent pain, swelling, and redness spreading up his arm. He was given a tetanus vaccination while in the ER. Was started on Unasyn for animal bite associated cellulitis. Hand x-ray does not show fracture or foreign body. Mild OA. No other abnormalities Tuesday ta tot get dog from under the table to give medicine and was bit on the hand. Since then progressively tender, painful, warm. Chills last day or so. No fevers. No shortness of breath, no chest pain no chest pressure no cough loose bowls, no diarrhea or constipation. nonausea or vomiting Medical History: Reviewed. DM, CVA Medications: Reviewed Surgical History: Reviewed Family history: Reviewed Allergies: Reviewed Social History: Chew 1 pouch q2h. Alcohol daily 2-3 double sized beer cans daily. No ETOH free days within memory. Code Status: Full Code Allergies Allergy/AdvReac Type Severity Reaction Status Date / Time No Known Allergies Allergy Verified 11/28/24 10:04 Home Medications Medication Instructions Recorded Confirmed Type cholecalciferol (vitamin D3) 25 25 mcg PO PM 01/02/23 01/04/25 History mcg (1,000 unit) capsule (Vitamin D3) pen needle, diabetic 32 gauge x #400 ea 08/24/23 08/22/24 Rx 532" (BD Ultra-Fine Alisia Pen Needle) Accu-Chek Guide test strips (blood #400 ea 04/30/24 11/28/24 Rx sugar diagnostic) Accu-Chek Fastclix Lancet Drum #400 ea 05/02/24 11/28/24 Rx (lancets) insulin glargine 100 unit/mL (3 42 unit subcut QAM 08/22/24 01/04/25 History mL) subcutaneous pen (Lantus Solostar U-100 Insulin) insulin aspart U-100 100 unit/mL 10 - 15 unit (0.1 - 0.15 mL) 11/28/24 01/04/25 Rx (3 mL) subcutaneous pen (Novolog subcut TIDM #45 mL FlexPen U-100 Insulin aspart) lisinopril 20 mg tablet 20 mg PO HS #90 tabs 11/28/24 01/04/25 Rx peg 3350-sod sulf,[id number] See Rx Instructions PO .COMPLEX #2 12/26/24 01/04/25 Rx 178.7-7.3-0.5-1.12-0.9 gram oral mL soln (Suflave) clopidogrel 75 mg tablet 75 mg PO PM 01/04/25 01/04/25 History empagliflozin 10 mg tablet 10 mg PO PM 01/04/25 01/04/25 History (Jardiance) escitalopram oxalate 10 mg tablet 10 mg PO PM 01/04/25 01/04/25 History ezetimibe 10 mg tablet 10 mg PO PM 01/04/25 01/04/25 History finerenone 10 mg tablet (Kerendia) 10 mg PO UD 01/04/25 01/04/25 History meloxicam 15 mg tablet 15 mg PO PM 01/04/25 01/04/25 History rosuvastatin 40 mg tablet 40 mg PO PM 01/04/25 01/04/25 History Past Med/Surg History Problem List (Updated 01/04/25 @ 18:38 by Sim Vivar MD) Cellulitis History of CVA (cerebrovascular accident) Diabetic nephropathy Mild nonproliferative diabetic retinopathy associated with type 1 diabetes mellitus Persistent microalbuminuria associated with type 1 diabetes mellitus Type 1 diabetes mellitus (Chronic) Abnormality of gait due to impairment of balance Spondylolisthesis of cervicothoracic region Osteophyte of cervical spine Degenerative cervical spinal stenosis PFO (patent foramen ovale) Cervical spondylosis with myelopathy and radiculopathy Snuff user Occipital stroke Flexor tendon rupture of hand Carpal tunnel syndrome, left Brachial plexopathy Anxiety and depression Numbness of left hand Cervical spondylosis (~05/2020) Hepatic steatosis PT DENIES Erectile dysfunction Spinal stenosis Dyslipidemia HTN (hypertension) Medical History (Updated 01/04/25 @ 18:38 by Sim Vivar MD) Shoulder pain LEFT Arthritis Anger reaction REASON FOR LEXAPRO PER PATIENT Surgical History History of esophagogastroduodenoscopy (EGD) History of tooth extraction S/P carpal tunnel release RT Family History Mother Dyslipidemia Hypertension Thyroid disease Grandmother (Maternal) Coronary heart disease Brother Colorectal cancer Other No family history of adverse response to anesthesia Denies family history of Ovarian cancer Prostate cancer Breast cancer Lung cancer Social History Smoking Status: Never smoker Tobacco Type: Cigarettes Age Started Using Tobacco: 19; Age Quit Using Tobacco: 29; packs per day: 0.5; Second Hand Exposure: No; Do You Dip or Chew Tobacco: Yes; Hx Alcohol Use: Yes Alcohol type: beer Alcohol type Comment: social Alcohol Intake Frequency: Monthly or Less Hx Substance Use: No Preferred Language: Nepali Communication Ability: Effective Visual Impairment: No Limitations Hearing Ability: Normal Rigging Slinger Required: No Beliefs That Will Affect Care: None marital status: Single Current Living Situation: Significant Other current occupational status: employed 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 NAD. Cooperative. HEENT: Atraumatic, normocephalic. Vision and hearing grossly intact Pulm: CTAB A&P. -wheezes, -rales, -rhonchi. Symmetrical chest rise. No increased work of breathing. No respiratory distress. Cardiac: RRR, -mrg. Radial pulses intact and symmetrical. Abdominal: Nontender, nondistended, soft. BS present. Extremities: Left hand with third digit swelling, erythema, and tenderness from the MCP to PIP. Flexion/extension at the third MCP/PIP limited by pain. Wrist flexion/extension is intact without pain or discomfort. No purulent discharge. Sensation soft touch is intact in all fingertips, cap refill is brisk in all fingertips. No evidence clinically of tenosynovitis or vascular compromise at time of assessment. Results & Data Results & Data Vital Signs (Past 12 Hours) Vital Signs Temp Pulse Resp BP Pulse Ox O2 Del Method 01/04/25 14:36 36.7 C 85 20 141/85 H 98 Room Air PG Care Time/CCT Total # of Minutes Spent Total Time Spent with Patient: Total time spent is greater than 50% in coordination of care (as documented) at patient's floor/unit and/or counseling patient: Coding Level of Care Code 58980 INT INP/OBS CARE 3/75MIN Diagnoses Cellulitis L03.90 Type 1 diabetes mellitus with diabetic microalbuminuria E10.29; R80.9 Diabetes mellitus complication status: with kidney complications Diabetes mellitus complication detail: with diabetic microalbuminuria (2) Type 1 diabetes mellitus Diabetes mellitus complication status: with kidney complications Diabetes mellitus complication detail: with diabetic microalbuminuria Qualified Code(s): E10.29 - Type 1 diabetes mellitus with other diabetic kidney complication; R80.9 - Proteinuria, unspecified
[2025-01-04] MEDS ORDERED: GLUCOSE 40% GEL 15 GM TUBE PO PRN (22:27)
[2025-01-04] MEDS ORDERED: GLUCOSE 10 TAB/TUBE PO PRN (22:27)
[2025-01-04] MEDS ORDERED: ACETAMINOPHEN 325 MG TAB PO PRN (22:27)
[2025-01-04] MEDS ORDERED: DEXTROSE 50% 50 ML SYRINGE IV PRN (22:27)
[2025-01-04] MEDS ORDERED: GLUCAGON FOR INJ 1 MG VIAL SQ PRN (22:27)
[2025-01-04] MEDS ORDERED: POLYETHYLENE (MIRALAX) 17 GM PACK PO PRN (22:27)
[2025-01-04 22:44] VITALS: RESP 18
[2025-01-04] MEDS: lisinopril 20 MG TAB PO SCH (22:51)
[2025-01-04] MEDS: CHOLECALCIFEROL 25 MCG (1000 UNITS) TAB PO SCH (22:51)
[2025-01-04] MEDS: ESCITALOPRAM OXALATE 10 MG TAB PO SCH (22:51)
[2025-01-04] MEDS: ROSUVASTATIN CALCIUM 20 MG TAB PO SCH (22:51)
[2025-01-04] MEDS: CLOPIDOGREL BISULFATE 75 MG TAB PO SCH (22:51)
[2025-01-04] MEDS: EZETIMIBE 10 MG TAB PO SCH (22:51)
[2025-01-04] MEDS: MELOXICAM 7.5 MG TAB PO SCH (22:51)
[2025-01-04] MEDS: AMPICILLIN/SULBACTAM SOD 3,000 MG/100 ML BAG IV SCH (22:55)
[2025-01-04] MEDS: HEPARIN SOD 5,000 UNIT/0.5 ML VIAL SQ SCH (22:59)
[2025-01-04] MEDS: INSULIN ASPART PER UNIT CHARGE SC SCH (23:00)
[2025-01-05] MEDS: CARBOHYDRATES FOR HYPOGLYCEMIA PO PRN (02:22)
[2025-01-05 07:20] VITALS: BP 101/61; PULSE 60; TEMP 98.2; O2SAT 96
[2025-01-05 08:40] LABS: Basophils # (auto) 0.04 K/uL (0.00-0.20); Basophils % (auto) 0.5 %; Eosinophils # (auto) 0.19 K/uL (0.00-0.50); Eosinophils % (auto) 2.2 %; Hematocrit (blood only) 45.4 % (42.0-52.0); Immature Granulocytes # (auto) 0.03 K/uL (0.01-0.20); Immature Granulocytes % (auto) 0.4 %; Lymphocytes # (auto) 2.15 K/uL (1.20-3.40); Lymphocytes % (auto) 25.2 %; Mean Corpuscular Hemoglobin 30.8 pg (25.0-34.0); Mean Corpuscular Hgb Conc 35.2 g/dL (32.0-36.0); Mean Corpuscular Volume 87.5 fL (80.0-100.0); Mean Platelet Volume 10.4 fL (9.4-12.4); Monocytes # (auto) 0.98 K/uL (0.11-0.59); Monocytes % (auto) 11.5 %; Neutrophils # (auto) 5.15 K/uL (1.40-6.50); Neutrophils % (auto) 60.2 %; Platelet Count 236 K/uL (130-400); RDW Coefficient of Variation 11.9 % (11.5-14.5); RDW Standard Deviation 38.4 fL (36.4-46.3); Red Blood Count 5.19 M/uL (4.70-6.10); White Blood Count 8.54 K/ul (4.8-10.8)
[2025-01-05] MEDS: LANTUS PER UNIT CHARGE SQ SCH (08:49)
--- NOTE | 2025-01-05 09:56 | Orthopedic Consultation ---
Date of Service January 05, 2025 Assessment & Plan (1) Dog bite: (2) Cellulitis: Plan Assessment: Left hand infection post dog bite. Plan: Overall, since receiving IV antibiotics, his symptoms have already started to progress in the right direction. He really has no erythema today. There is low suspicion of any tenosynovitis going on. Orthopedic recommendation at this point is to continue with IV antibiotics. Once stable for discharge, he should be switched to oral antibiotics at that point. We will leave this up to the admitting service on what they would like to send him home on for antibiotic regimen. He is encouraged to continue working on range of motion to the left hand. He was informed of the rest, ice, and elevation procedures. He can follow-up with orthopedics in 2 weeks after discharge or with his PCP. Please reach out to [facility] orthopedics if patient's situation is to change. History of Present Illness Reason for Consultation: Left hand infection post dog bite Requesting Physician: . Attending Physician: Sim Vivar MD . Patient is a 54-year-old gentleman who presented to the emergency department yesterday evening for a left hand infection after a dog bite. He states that on Tuesday, he was reaching under the table to get his dog out to give it some medicine whenever it been on his hand. Progressively throughout the week, his hand became more red and swollen with tenderness with range of motion. He came to the emergency department for evaluation. At the emergency department, they started him on IV antibiotics and admitted to the hospitalist service for continued IV antibiotic treatment. Orthopedics was then consulted. Today, he notes that the redness has improved greatly. He still has some tenderness to the left hand. He is still receiving IV antibiotics at this time. He denies any proximal extremity discomfort, numbness/ting, or paresthesias. He denies any other concerns today. Allergies Allergy/AdvReac Type Severity Reaction Status Date / Time No Known Allergies Allergy Verified 11/28/24 10:04 Home Medications Medication Instructions Recorded Confirmed Type cholecalciferol (vitamin D3) 25 25 mcg PO PM 01/02/23 01/04/25 History mcg (1,000 unit) capsule (Vitamin D3) pen needle, diabetic 32 gauge x #400 ea 08/24/23 08/22/24 Rx " (BD Ultra-Fine Alisia Pen Needle) Accu-Chek Guide test strips (blood #400 ea 04/30/24 11/28/24 Rx sugar diagnostic) Accu-Chek Fastclix Lancet Drum #400 ea 05/02/24 11/28/24 Rx (lancets) insulin glargine 100 unit/mL (3 42 unit subcut QAM 08/22/24 01/04/25 History mL) subcutaneous pen (Lantus Solostar U-100 Insulin) insulin aspart U-100 100 unit/mL 10 - 15 unit (0.1 - 0.15 mL) 11/28/24 01/04/25 Rx (3 mL) subcutaneous pen (Novolog subcut TIDM #45 mL FlexPen U-100 Insulin aspart) lisinopril 20 mg tablet 20 mg PO HS #90 tabs 11/28/24 01/04/25 Rx peg 3350-sod sulf,[id number] See Rx Instructions PO .COMPLEX #2 12/26/24 01/04/25 Rx 178.7-7.3-0.5-1.12-0.9 gram oral mL soln (Suflave) clopidogrel 75 mg tablet 75 mg PO PM 01/04/25 01/04/25 History empagliflozin 10 mg tablet 10 mg PO PM 01/04/25 01/04/25 History (Jardiance) escitalopram oxalate 10 mg tablet 10 mg PO PM 01/04/25 01/04/25 History ezetimibe 10 mg tablet 10 mg PO PM 01/04/25 01/04/25 History finerenone 10 mg tablet (Kerendia) 10 mg PO UD 01/04/25 01/04/25 History meloxicam 15 mg tablet 15 mg PO PM 01/04/25 01/04/25 History rosuvastatin 40 mg tablet 40 mg PO PM 01/04/25 01/04/25 History Past Med/Surg History Problem List (Updated 01/04/25 @ 20:02 by TERA Urias) Dog bite (Acute) Cellulitis (Acute) History of CVA (cerebrovascular accident) Diabetic nephropathy Mild nonproliferative diabetic retinopathy associated with type 1 diabetes mellitus Persistent microalbuminuria associated with type 1 diabetes mellitus Type 1 diabetes mellitus (Chronic) Abnormality of gait due to impairment of balance Spondylolisthesis of cervicothoracic region Osteophyte of cervical spine Degenerative cervical spinal stenosis PFO (patent foramen ovale) Cervical spondylosis with myelopathy and radiculopathy Snuff user Occipital stroke Flexor tendon rupture of hand Carpal tunnel syndrome, left Brachial plexopathy Anxiety and depression Numbness of left hand Cervical spondylosis (~05/2020) Hepatic steatosis PT DENIES Erectile dysfunction Spinal stenosis Dyslipidemia HTN (hypertension) Medical History Shoulder pain LEFT Arthritis Anger reaction REASON FOR LEXAPRO PER PATIENT Surgical History History of esophagogastroduodenoscopy (EGD) History of tooth extraction S/P carpal tunnel release RT Family History Mother Dyslipidemia Hypertension Thyroid disease Grandmother (Maternal) Coronary heart disease Brother Colorectal cancer Other No family history of adverse response to anesthesia Denies family history of Ovarian cancer Prostate cancer Breast cancer Lung cancer Social History Smoking Status: Never smoker Tobacco Type: Smokeless Tobacco (Dip or Chew) Age Started Using Tobacco: 19; Age Quit Using Tobacco: 29; packs per day: 0.5; Second Hand Exposure: No; Do You Dip or Chew Tobacco: Yes; Tobacco Cessation Education Requested by Patient: No Hx Alcohol Use: Yes Alcohol type: beer Alcohol type Comment: social Alcohol Intake Frequency: Monthly or Less Hx Substance Use: No Preferred Language: Malay Communication Ability: Effective Visual Impairment: No Limitations Hearing Ability: Normal Hotel Night Auditor Required: No Beliefs That Will Affect Care: None marital status: Single Current Living Situation: Significant Other Current Living Situation Comment: lives in 2 story home with leandra current occupational status: employed 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 Physical Exam . Constitutional: WD/WN, vitals as above no acute distress Musculoskeletal: On physical examination of the left hand, there is numerous bite tamez most pronounced on the middle and ring finger of the left hand. There is generalized edema throughout the left hand with no notable erythema noted. Does have tenderness to palpation just to the proximal digits. 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 +2 radial pulse. Less than 2-second capillary refill. Normal sensation. Neurovascular intact. Results & Data Results & Data Laboratory Results . Diagnostic Findings . Hand X-Ray 01/04/25 16:16 Clinical History: Dog bite 4 views of the left hand are submitted for review. Findings: No fracture or dislocation is seen. There is mild osteoarthritis of the interphalangeal joints. No other osseous abnormality is identified. There are no radiopaque foreign bodies. Vascular calcifications are present. There is some soft tissue swelling of the middle finger Impression: 1. No definite fracture or foreign body 2. Mild osteoarthritis Electronically signed by Ino Rolle 01-04-2025 5:13 PM PG Care Time/CCT Total # of Minutes Spent Total Time Spent with Patient: Total time spent is greater than 50% in coordination of care (as documented) at patient's floor/unit and/or counseling patient: Supervising Physician Co-Signing Physician Notes Patient was seen and evaluated with the physician digital marketing assistant. The case was discussed. I reviewed all pertinent aspects of the medical record. Agree with plan of care. No evidence of abscess or other needed surgical decom pression. Will evaluate progress tomorrow morning. Coding Level of Care Code 05591 IN/OBS CONSULT LVL 3,45M Diagnoses Dog bite W54.0XXA Cellulitis L03.90
--- NOTE | 2025-01-05 12:27 | Discharge Summary ---
Discharge Summary Date of Service January 05, 2025 Principal Dx & Hospital Course #1 = Principal Diagnosis (1) Cellulitis: Left hand cellulitis 2/2 dog bite week prior to presentation No signs of tenosynovitis at time of admitting assessment. Localized swelling, erythema and pain at the third left MCP/PIP Received tetanus shot Was placed on empiric Unasyn. Had rapid improvement in swelling, erythema. At times of orthopedic evaluation day of discharge no evidence of tenosynovitis, erythema almost resolved, swelling improving. Seen by orthopedics recommended for 2-week follow-up, continued antibiotics. No additional imaging/surgical intervention recommended at time of assessment. X-ray without fracture or other abnormality No leukocytosis -Offered observation for an additional 24 hours of IV antibiotics versus discharge home on Augmentin. Prefers discharge home which is reasonable given rapid clinical improvement and no red flag symptoms. Was discharged to follow- up with PCP within 1 week, and orthopedics in approximately 2 weeks. Augmentin 9-day course for 10-day total antibiotic course was prescribed. Duration of therapy should be reassessed based on progression at 1 week follow- up. (2) Type 1 diabetes mellitus: Admission HPI Per Admitting Provider Maite is a 54-year-old male with a past medical history of type I DM, CVA, PFO, anxiety/depression, hypertension who presented for evaluation of a left hand animal bite with subsequent pain, swelling, and redness spreading up his arm. He was given a tetanus vaccination while in the ER. Was started on Unasyn for animal bite associated cellulitis. Hand x-ray does not show fracture or foreign body. Mild OA. No other abnormalities Tuesday ta tot get dog from under the table to give medicine and was bit on the hand. Since then progressively tender, painful, warm. Chills last day or so. No fevers. No shortness of breath, no chest pain no chest pressure no cough loose bowls, no diarrhea or constipation. nonausea or vomiting Medical History: Reviewed. DM, CVA Medications: Reviewed Surgical History: Reviewed Family history: Reviewed Allergies: Reviewed Social History: Chew 1 pouch q2h. Alcohol daily 2-3 double sized beer cans daily. No ETOH free days within memory. Code Status: Full Code Discharge Exam General: A&Ox3. NAD. Cooperative. HEENT: Atraumatic, normocephalic. Vision and hearing grossly intact Pulm: CTAB A&P. -wheezes, -rales, -rhonchi. Symmetrical chest rise. No increased work of breathing. No respiratory distress. Cardiac: RRR, -mrg. Radial pulses intact and symmetrical. Abdominal: Nontender, nondistended, soft. BS present. Extremities: Left hand with improved but still present swelling from the 3rd L MCP to PIP. Erythema nearly completely resolved. No purulent discharge. Sensation soft touch is intact in all fingertips, cap refill is brisk in all fingertips. No evidence clinically of tenosynovitis or vascular compromise at time of assessment. Discharge Plan Discharge Items Patient Disposition: Home - Self-Care Reason For Visit: L HAND CELLULITIS, DOG BITE Discharge Diagnosis: Dog bite, left hand cellulitis Activity: Resume your previous activity Weightbearing: Full weightbearing Non-emergency contact: Primary Care Provider Call non-emergency contact if: you have any medication questions, your symptoms worsen and your pain is not controlled Follow-up/Referrals: Kiarra Garcia DO [Primary Care Provider] - (followup within ~1 week) Mehul Laura MD [Surgeon] - Diet: Regular Addtl Attending Provider Instructions: You are seen for an infection of your left hand due to a dog bite. Following 1 day of IV antibiotics with Unasyn this was rapidly improving, your swelling had not resolved but the redness had nearly completely improved and your range of motion pain and swelling are all improving. Given prescribed an antibiotic, Augmentin. Please take Augmentin 875-125 mg by mouth twice daily starting the evening of 01/05/2025. You have been prescribed 9 days of this antibiotic to complete a 10-day course. Your outpatient providers may adjust the length of this antibiotic course based on your follow-up. You should be seen by your PCP in approximately 1 week, and a orthopedic follow-up was being scheduled for you for within 2 weeks. X-ray during admission did not show any evidence of fracture. You were seen by orthopedics, further imaging and surgery were not recommended at time of assessment If you develop any new or worsening symptoms including fever, chills, sweats, chest pain, chest pressure, difficulty breathing, uncontrolled nausea/vomiting, rash, wheezing, passing out or nearly passing out, bleeding, black/bloody bowel movements, or other new or concerning symptoms please call your primary care physician, or call 911 for re-evaluation in the emergency department if you are very concerned. Pending Studies at Discharge: No Stand-Alone Forms: My [facility] [employer], Smoking Cessation Medications and DC Order Prescriptions: New amoxicillin-pot clavulanate 875-125 mg tablet 1 tab PO Q12H 9 Days Qty: 18 0RF Continued (DME) Accu-Chek Guide test strips Strip See Rx Instructions .ROUTE .MEDSUPPLY Qty: 400 1RF Rx Instructions: test 4 times daily (DME) lancets [Accu-Chek Fastclix Lancet Drum] Misc See Rx Instructions .ROUTE .MEDSUPPLY Qty: 400 1RF Rx Instructions: test 4 times daily Suflave 178.7-7.3-0.5 gram recon soln See Rx Instructions PO .COMPLEX Qty: 2 0RF Rx Instructions: orally; orally; TAKE FIRST DOSE AT 6 PM AND SECOND DOSE 6 HOURS PRIOR TO PROCEDURE BIN: [id number] PCN: [id number] GROUP: [id number] (DME) pen needle, diabetic [BD Ultra-Fine Alisia Pen Needle] 32 gauge x 5/32" needle See Rx Instructions .ROUTE .MEDSUPPLY Qty: 400 1RF Rx Instructions: use 4 needles daily insulin glargine [Lantus Solostar U-100 Insulin] 100 unit/mL (3 mL) insulin pen 42 unit subcut QAM insulin aspart U-100 [Novolog FlexPen U-100 Insulin] 100 unit/mL (3 mL) insulin pen 10 - 15 unit subcut TIDM MDD 50 units Qty: 45 1RF Rx Instructions: Inject 10-15 units three times a day with meals lisinopril 20 mg tablet 20 mg PO HS Qty: 90 1RF cholecalciferol (vitamin D3) [Vitamin D3] 25 mcg (1,000 unit) Capsule 25 mcg PO PM meloxicam 15 mg tablet 15 mg PO PM clopidogrel 75 mg tablet 75 mg PO PM escitalopram oxalate 10 mg tablet 10 mg PO PM ezetimibe 10 mg tablet 10 mg PO PM rosuvastatin 40 mg tablet 40 mg PO PM Jardiance 10 mg tablet 10 mg PO PM Kerendia 10 mg tablet 10 mg PO UD Rx Instructions: 10 mg po daily. pt wasnt too sure about this medication. last filled 08/22 30 day supply Discharge Orders: Discharge Order (Routine); Ordered 01/05/25 Ordered By: Sim Vivar Admission Data Admit Date/Time: 01/04/25 18:37 Attending Provider: Sim Vivar Admit Provider: Sim Vivar Primary Care Provider: Kiarra Garcia Other Providers: Mehul Laura; Sim Vivar Hospital Stay Data Consultations 01/04/25 18:14 Consult Orthopedic Surgery Stat 01/04/25 18:17 ED Decision to Admit Stat Discharge Instructions Given to Patient (Per Discharging Provider) You are seen for an infection of your left hand due to a dog bite. Following 1 day of IV antibiotics with Unasyn this was rapidly improving, your swelling had not resolved but the redness had nearly completely improved and your range of motion pain and swelling are all improving. Given prescribed an antibiotic, Augmentin. Please take Augmentin 875-125 mg by mouth twice daily starting the evening of 01/05/2025. You have been prescribed 9 days of this antibiotic to complete a 10-day course. Your outpatient providers may adjust the length of this antibiotic course based on your follow-up. You should be seen by your PCP in approximately 1 week, and a orthopedic follow-up was being scheduled for you for within 2 weeks. X-ray during admission did not show any evidence of fracture. You were seen by orthopedics, further imaging and surgery were not recommended at time of assessment If you develop any new or worsening symptoms including fever, chills, sweats, chest pain, chest pressure, difficulty breathing, uncontrolled nausea/vomiting, rash, wheezing, passing out or nearly passing out, bleeding, black/bloody bowel movements, or other new or concerning symptoms please call your primary care physician, or call 911 for re-evaluation in the emergency department if you are very concerned. Total Time Total Time Spent Total Time Spent (In Minutes): Time spend day of discharge 40 minutes including direct patient care, documentation, review of labs and images, and coordination of care. 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
== END 2025-01-05 15:50 | disposition home or self-care (01) | DRG 603 ==
LOC: SUATTDRO → ED 14:32 → 3W 18:37